=== PATIENT | male | born 1950 | race Caucasian/White ===

== ENCOUNTER 2022-07-08 07:51 | Inpatient (IN) ==
[2022-07-08] MEDS ORDERED: 0.9 % SODIUM CHLORIDE 1,000 ML IV ONE ×2 (08:14→09:10)
[2022-07-08] MEDS ORDERED: DIAZEPAM 10 MG/2 ML SYRINGE IV ONE (08:14)
[2022-07-08] MEDS ORDERED: METOCLOPRAMIDE 10 MG/2 ML VIAL IV ONE (08:14)
--- NOTE | 2022-07-08 08:20 | Emergency Department Note ---
Nausea/Vomiting/Diarrhea HPI General Chief complaint: Nausea/Vomiting/Diarrhea Stated complaint: N/v dizzy Time Seen by Provider: 07/08/22 07:58 Source: EMS Mode of arrival: EMS Limitations: no limitations History of Present Illness HPI Narrative: Narrative: The patient presents with several days of dizziness. He describes it as the world is spinning. This is worse with any movement. It is associated with vomi ting. Patient denies any headache or chest pain. He denies any diarrhea. He was just seen here recently and was feeling better but got home and started to feel worse again. He does admit to recent cocaine use. He denies dyspnea. He denies blood in the vomit. He denies any focal weakness or numbness but says he feels off balance. Related Data Home Medications Medication Instructions Recorded Confirmed albuterol 90 mcg/actuation aerosol 25 mcg inhalation QDAY 04/12/21 04/12/21 inhaler bupropion HCl 100 mg tablet 100 mg PO BID 04/12/21 04/12/21 metoprolol succinate 25 mg 25 mg PO QDAY 04/12/21 04/12/21 tablet,extended release 24 hr tamsulosin 0.4 mg capsule (Flomax) 0.4 mg PO QDAY 04/12/21 04/12/21 Previous Rx's Medication Instructions Recorded ondansetron 4 mg disintegrating 4 mg PO Q8H PRN nausea and 04/12/21 tablet vomiting #10 tabs Allergies Allergy/AdvReac Type Severity Reaction Status Date / Time No Known Drug Allergies Allergy Verified 07/08/22 07:52 Review of Systems ROS ROS Narrative: Narrative: All systems ED: reviewed and negative except as stated. [facility] Narrative Patient History Narrative: Narrative: Medical/Surgical/Family History All Active Problems (Updated 07/08/22 @ 12:36 by Gerry Stratton MD) Pneumonia (Acute) Flank pain (Acute) Cocaine intoxication (Acute) Acute dehydration (Acute) Other and unspecified peripheral vertigo (Acute) Social History Smoking Status: Current some day smoker Exam Narrative Narrative: Narrative: General Limitations: no limitations General appearance: Present alert Head Head: Present atraumatic and normal inspection Eye Eye: Present normal appearance, PERRL, EOMI and nystagmus (Marked horizontal nystagmus. No rotary or vertical nystagmus.) ENT ENT: Present TM's normal bilaterally; Absent mucous membranes moist Neck Neck: Present normal inspection, full ROM and trachea midline; Absent meningismus Chest Chest: Present normal inspection and symmetric chest wall rise Respiratory Respiratory: Present normal lung sounds bilaterally; Absent respiratory distress Cardiovascular Cardiovascular: Present regular rate, normal rhythm and other (Bilateral radial 2+) Adbominal Abdominal: Present soft; Absent distention, tenderness, guarding or rebound Extremities Extremities: Present normal inspection and full ROM Back Back: Present full ROM; Absent CVA tenderness (R) or CVA tenderness (L) Neurological Neurological: Present alert, oriented X3, CN II-XII intact and other (Cerebellar exam is normal based on both finger-nose and heel mckeon); Absent motor sensory deficit Psychiatric Psychiatric: Present normal affect and normal mood Skin Skin: Present warm (WNL) and dry Course Reevaluation(s) Reevaluation #1: The patient's work-up is reviewed and is essentially negative. He does appear little dehydrated. A second liter of fluid was given. Patient is reevaluated and does state that he feels better, although symptoms have not completely resolved. Plan at this point is to ambulate patient. If you feel steady on his feet, discharge may be discussed with prescription medication. If he does not, then I will consult with hospitalist for an observation overnight. Time: 09:23 Reevaluation #2: The patient failed his ambulation test. Nursing staff said he was extremely unsteady on his feet. At this point, I feel discharge would be unsafe. We are waiting to see if there are any beds available at this facility and if there are, I will consult with the hospitalist. If there are not, we will need to arrange for a transfer. Time: 09:43 Consultations Consultation #1: I spoke to the hospitalist, Dr. Ritchie. He asked me to get a noncontrast MRI of the brain and if that was normal, he would gladly admit the patient locally. He said that that was abnormal, the patient would need to be transferred to someplace that has a neurologist. Time: 10:51 Vital Signs Vital signs: Vital Signs Temperature 97.4 F 07/08/22 07:51 Pulse Rate 69 07/08/22 07:51 Respiratory Rate 20 07/08/22 07:51 Blood Pressure 217/117 07/08/22 07:51 Pulse Oximetry (%) 93 07/08/22 07:51 Oxygen Delivery Method 07/08/22 07:51 Temperature 97.4 F 07/08/22 07:51 Pulse Rate 81 07/08/22 12:22 Respiratory Rate 19 07/08/22 12:22 Blood Pressure 147/103 07/08/22 12:22 Pulse Oximetry (%) 92 07/08/22 12:22 Oxygen Delivery Method 07/08/22 07:51 MDM MDM Narrative Medical decision making narrative: Narrative: The patient presents with what sounds like peripheral vertigo. He tsang s a normal cerebellar exam so I have little concern for posterior fossa event. He does appear mildly dehydrated. Plan to check CBC, CMP, troponin, head CT, and EKG. We will keep him on a threat monitoring analyst. We will give a liter of fluid. We will give Reglan for the nausea and a dose of diazepam for the vertigo. If patient's work-up is negative and he is feeling better, then discharge may be discussed. Lab Data Lab results reviewed: Yes I reviewed the patient's lab results. Result diagrams: 07/08/22 08:19 07/08/22 08:19 Labs: Lab Results 07/08/22 07/08/22 07/08/22 Range/Units 08:06 08:19 08:19 WBC 11.7 H (4.5-11.0) K/mcL RBC 6.47 H (4.63-6.08) M/mcL Hgb 19.1 H (13.7-17.5) g/dL Hct 56.7 H (40.1-51.0) % MCV 87.6 (80.0-100.0) fL MCH 29.5 (26.0-34.0) pg MCHC 33.7 (31.0-36.0) g/dL RDW 14.3 (11.5-14.5) % Plt Count 275 (140-440) K/mcL MPV 11.3 H (7.4-10.4) fL Immature Gran % (Auto) 0.4 (0.0-0.5) % Neut % (Auto) 78.2 H (38.0-78.0) % Lymph % (Auto) 13.5 L (15.5-49.0) % [place] % (Auto) 7.2 (1.0-12.0) % Eos % (Auto) 0.4 (0.0-7.0) % Baso % (Auto) 0.3 (0.0-2.0) % Lymph # (Auto) 1.58 (1.50-4.80) K/mcL [place] # (Auto) 0.84 (0.10-0.90) K/mcL Eos # (Auto) 0.05 (0.00-0.70) K/mcL Baso # (Auto) 0.04 (0.00-0.30) K/mcL Immature Gran # 0.05 (0.00-0.05) K/mcl Absolute Neutrophils 9.18 H (1.80-8.00) K/mcL Sodium 141 (133-145) mmol/L Potassium 4.2 (3.3-5.1) mmol/L Chloride 105 (96-108) mmol/L Carbon Dioxide 19 L (22-30) mmol/L Anion Gap 17.0 H (8.0-16.0) BUN 22 (8-23) mg/dL Creatinine 1.2 (0.7-1.2) mg/dL GFR Calculation 60 Glucose 121 H (70-105) mg/dL Calcium 9.3 (8.6-10.4) mg/dL Total Bilirubin 0.8 (0.1-1.0) mg/dL AST 18 (<40) U/L ALT 20 (<40) U/L Alkaline Phosphatase 86 (39-117) U/L Total Protein 7.8 (5.9-8.4) gm/dL Albumin 4.2 (3.2-5.2) gm/dL Globulin 3.6 (2.2-3.7) gm/dL Albumin/Globulin Ratio 1.2 (1.0-2.3) POC Troponin I 0.01 L (0.02-0.08) Radiology Data Radiology results reviewed: Yes I reviewed the patient's radiology results. EKG Data EKG #1: EKG attestation: Yes I reviewed and interpreted this EKG. and Yes There are no EKG findings of acute coronary syndrome EKG results narrative: Sinus, rate 81, normal axis, QTC 504, TN is 203, narrow complex QRS, no acute ST or T changes concerning for acute infarction or ischemia Discharge Plan Patient/Caregiver Discharge Instructions Pt seen by BICYCLE TECHNICIAN/PA only: No Clinical Impression: Other and unspecified peripheral vertigo Patient Disposition: Xfer As Inpt ([facility]) Follow up with: No,PCP [Primary Care Provider] - Prescriptions: No Action bupropion HCl [Wellbutrin] 100 mg Tablet 100 mg PO BID Rx Instructions: pt unsure of MG tamsulosin [Flomax] 0.4 mg Capsule 0.4 mg PO QDAY metoprolol succinate 25 mg Tablet Extended Release 24 Hr 25 mg PO QDAY Rx Instructions: pt unsure of dosage albuterol 90 mcg/actuation Aerosol 25 mcg INHALATION QDAY ondansetron 4 mg tablet,disintegrating 4 mg PO Q8H PRN (Reason: nausea and vomiting) Qty: 10 0RF
[2022-07-08 08:54] LABS: Basophils # (Auto) 0.04 K/mcL (0.00-0.30); Basophils % (Auto) 0.3 % (0.0-2.0); Eosinophils # (Auto) 0.05 K/mcL (0.00-0.70); Eosinophils % (Auto) 0.4 % (0.0-7.0); Hematocrit 56.7 % (40.1-51.0); Hemoglobin 19.1 g/dL (13.7-17.5); Lymphocytes # (Auto) 1.58 K/mcL (1.50-4.80); Lymphocytes % (Auto) 13.5 % (15.5-49.0); Mean Cell Volume 87.6 fL (80.0-100.0); Mean Corpuscular HGB Conc 33.7 g/dL (31.0-36.0); Mean Platelet Volume 11.3 fL (7.4-10.4); Monocytes # (Auto) 0.84 K/mcL (0.10-0.90); Monocytes % (Auto) 7.2 % (1.0-12.0); Neutrophils % (Auto) 78.2 % (38.0-78.0); Platelet Count 275 K/mcL (140-440); RBC 6.47 M/mcL (4.63-6.08); Red Cell Distribution Width 14.3 % (11.5-14.5); WBC 11.7 K/mcL (4.5-11.0)
[2022-07-08 09:01] LABS: ALT/SGPT 20 U/L (<40); AST/SGOT 18 U/L (<40); Albumin 4.2 gm/dL (3.2-5.2); Albumin/Globulin Ratio 1.2 (1.0-2.3); Alkaline Phosphatase 86 U/L (39-117); Bilirubin,Total 0.8 mg/dL (0.1-1.0); Blood Urea Nitrogen 22 mg/dL (8-23); Calcium 9.3 mg/dL (8.6-10.4); Carbon Dioxide 19 mmol/L (22-30); Chloride 105 mmol/L (96-108); Globulin 3.6 gm/dL (2.2-3.7); Glomerular Filtration Rate 60; Glucose 121 mg/dL (70-105)
--- NOTE | 2022-07-08 09:19 | Cat Scan Report ---
CLINICAL INFORMATION: Vertigo COMPARISON: None. TECHNIQUE: 2.5 mm helical slices were obtained in the skull base to vertex. Following reconstruction, axial reformatted images were reviewed at bone and parenchymal windows. The exam was performed using radiation dose optimization techniques including, but not limited to, automated exposure control, adjustment of the mA and/or kV according to patient size and use of iterative reconstruction technique. FINDINGS: The ventricles, sulci, fissures, and cisterns are symmetrically enlarged compatible with mild age-related atrophy. No extra-axial fluid collections are identified. Mild patchy chronic ischemic changes, in the deep cerebral white matter, are expected for age. Small remote lacunar infarcts present in the bifrontal deep white matter, right thalamus and both lentiform nuclei. There is no hemorrhage, mass effect, or edema. Bone windows show no osseous abnormality. IMPRESSION: Mild atrophy and chronic ischemic changes in the deep cerebral white matter-expected for age. Remote lacunar infarcts in the deep bifrontal white matter, right thalamus and basal ganglia. No hemorrhage or other acute finding Interpreted and Authenticated by: Ross Gao 07/08/22
--- NOTE | 2022-07-08 10:09 | EKG ---
TS Minor Care Test Date: 2022-07-08 Pat Name: Souleymane Naik Department: ED Room: Gender: Male Call Or Contact Centre Team Leader: : 1950 Requested By: Gerry Stratton Order Number: [id number] Reading MD: Neri Crabtree Measurements Intervals [place] Rate: 81 P: 48 [place]: 203 QRS: 9 QRSD: 108 T: 74 QT: 434 QTc: 504 Interpretive Statements Sinus rhythm Prolonged QT interval Electronically Signed On 07-08-2022 10:09:16 PDT by Neri Crabtree /store/M0/[id number]/[email or web address]/[id number].pdf
--- NOTE | 2022-07-08 12:20 | Magnetic Resonance Report ---
CLINICAL INFORMATION: Dizziness and vomiting COMPARISON: Head CT 07/08/2022 TECHNIQUE: Sagittal T1 FLAIR, axial T2 FLAIR, diffusion ADC axial T2, coronal T1 post Mag[place]vist axial T1 post made images were acquired through the brain FINDINGS: The ventricles, sulci, fissures and cisterns are symmetrically enlarged compatible with mild age-related atrophy-no extra-axial fluid collections or masses appreciated. Scattered chronic ischemic changes in the deep cerebral white matter are typical for age. 10 mm remote lacunar infarct in the right frontal white matter with a laminar normal lacunar infarct in the left frontal parietal junction and peritrigonal region. No abnormal enhancement. IMPRESSION: Mild atrophy with scattered chronic ischemic foci in cerebral white matter. Remote lacunar infarcts in the mid deep right frontal white matter and the posterior left deep frontal white matter. No evidence of restricted diffusion to suggest acute infarct, hemorrhage or other acute finding. Interpreted and Authenticated by: Ross Gao 07/08/22
[2022-07-08] MEDS ORDERED: ACETAMINOPHEN 325 MG TABLET PO PRN (13:44)
--- NOTE | 2022-07-08 14:19 | Internal Med History&Physical ---
HPI History of Present Illness Patient information: Note initiated : 07/08/22 at 2:11 pm Service Date, if different from initiated Date: [] Patient: Souleymane Naik 71 y/o M admitted on 07/08/22 for N/v dizzy. Chief Complaint: [] History of present illness: Mr. Naik is a 71 year old with a chief complaint of "dizziness". He says it started at home several days ago. It was initially associated changes in hearing, the patient says both ears were affected. The patient is also had nausea and vomiting. He denies recent fevers chills, no headaches, no chest pain, no abdominal discomfort. In the ED, the patient had a mild leukocytosis, elevated hemoglobin and hematocrit. CT head without contrast not show any acute changes. MRI brain did not show any acute changes. Hospital medicine was consulted for admission. Review of systems Constitutional: no fever, fatigue, or weight loss Eyes: no vision changes or pain Cardiovascular: no chest pain, no palpitations Respiratory: no cough or dyspnea Gastrointestinal: Positive for nausea and vomiting, abdominal pain, no nausea, vomiting, or diarrhea Genitourinary: no dysuria or difficulty voiding Musculoskeletal: no arthralgia or myalgia Integumentary: no skin lesion or wound Neurological: Positive for vertigo Psychiatric: no anxiety or depression Physical exam Head: Atraumatic, normal inspection. Eyes: normal appearance, no scleral icterus. Neck: full ROM Respiratory: no respiratory distress. Cardiovascular: normal rate and rhythm, S1, S2. GI/Abdominal: soft, nontender, no guarding. Extremities: full range of motion, nontender. Neurological: Positive for horizontal nystagmus, intact motor, intact sensation. Psychiatric: normal mood. Skin: warm, normal color PFSH PFSH All Active Problems (Updated 07/08/22 @ 12:36 by Gerry Stratton MD) Pneumonia (Acute) Flank pain (Acute) Cocaine intoxication (Acute) Acute dehydration (Acute) Other and unspecified peripheral vertigo (Acute) Social History smoking status: Current some day smoker MEDS/ALLERGIES Home Medications and Allergies Home Medications Medication Instructions Recorded Confirmed Type albuterol 90 mcg/actuation aerosol 25 mcg inhalation QDAY 04/12/21 04/12/21 History inhaler bupropion HCl 100 mg tablet 100 mg PO BID 04/12/21 04/12/21 History metoprolol succinate 25 mg 25 mg PO QDAY 04/12/21 04/12/21 History tablet,extended release 24 hr ondansetron 4 mg disintegrating 4 mg PO Q8H PRN nausea and 04/12/21 Rx tablet vomiting #10 tabs tamsulosin 0.4 mg capsule (Flomax) 0.4 mg PO QDAY 04/12/21 04/12/21 History Allergies Allergy/AdvReac Type Severity Reaction Status Date / Time No Known Drug Allergies Allergy Verified 07/08/22 07:52 EXAM Constitutional Vitals: Temp Pulse Resp BP Pulse Ox O2 Del Method 97.4 F 81 10 L 146/96 90 07/08/22 13:38 07/08/22 13:38 07/08/22 13:38 07/08/22 13:38 07/08/22 13:38 07/08/22 07:51 DATA Data Completed and Pending Labs: Labs from last 24 hours 07/08/22 07/08/22 07/08/22 08:19 08:19 08:06 WBC 11.7 H RBC 6.47 H Hgb 19.1 H Hct 56.7 H MCV 87.6 MCH 29.5 MCHC 33.7 RDW 14.3 Plt Count 275 MPV 11.3 H Immature Gran % (Auto) 0.4 Neut % (Auto) 78.2 H Lymph % (Auto) 13.5 L [place] % (Auto) 7.2 Eos % (Auto) 0.4 Baso % (Auto) 0.3 Lymph # (Auto) 1.58 [place] # (Auto) 0.84 Eos # (Auto) 0.05 Baso # (Auto) 0.04 Immature Gran # 0.05 Absolute Neutrophils 9.18 H Sodium 141 Potassium 4.2 Chloride 105 Carbon Dioxide 19 L Anion Gap 17.0 H BUN 22 Creatinine 1.2 GFR Calculation 60 Glucose 121 H Calcium 9.3 Total Bilirubin 0.8 AST 18 ALT 20 Alkaline Phosphatase 86 Total Protein 7.8 Albumin 4.2 Globulin 3.6 Albumin/Globulin Ratio 1.2 POC Troponin I 0.01 L A/P Narrative A/P Narrative: Assessment: 71-year-old male with a history of untreated hypertension, cocaine use disorder admitted for peripheral vertigo. Patient was also found to have polycythemia, he says he has been told he has high hemoglobin in the past. MRI brain did not show any acute infarct or other changes that could cause central vertigo. 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 -Meclizine as needed for vertigo. -Follow WBC and hemoglobin. -Urine drug screen. -Start Norvasc 5 mg daily. -Supportive cares. -PT and OT. -Regular diet. Time Spent With Patient Time: Total time spent is greater than 50% in coordination of care (as documented) at patient's floor/unit and/or counseling patient:
[2022-07-08] MEDS: ONDANSETRON 4 MG/2 ML VIAL IV PRN (14:46)
[2022-07-08] MEDS: 0.9 % SODIUM CHLORIDE 1,000 ML IV SCH (14:46)
[2022-07-08] MEDS: 0.9 % SODIUM CHLORIDE 10 ML SYRINGE IV SCH ×2 (14:46→21:10)
[2022-07-08] MEDS: amLODIPine 5 MG TABLET PO SCH (14:51)
[2022-07-08] MEDS: DOCUSATE SODIUM 100 MG CAPSULE PO SCH (21:09)
[2022-07-08] MEDS: SENNOSIDES 1 TABLET PO SCH (21:10)
[2022-07-09 00:44] LABS: Amphetamine Screen,Urine None detected; Barbiturate Screen,Urine None detected; Benzodiazepines Screen,Urine None detected; Cannabinoid Screen,Urine None detected; Cocaine Screen,Urine Suspect Positive; Opiate Screen,Urine None detected; Oxycodone, Urine Screen None detected; Phencyclidine Screen,Urine None detected
[2022-07-09] MEDS: 0.9 % SODIUM CHLORIDE 1,000 ML IV SCH ×2 (03:31→16:59)
[2022-07-09] MEDS: 0.9 % SODIUM CHLORIDE 10 ML SYRINGE IV SCH ×4 (05:24→20:26)
[2022-07-09 07:24] LABS: Blood Urea Nitrogen 18 mg/dL (8-23); Calcium 8.9 mg/dL (8.6-10.4); Carbon Dioxide 24 mmol/L (22-30); Chloride 108 mmol/L (96-108); Glomerular Filtration Rate 75; Glucose 81 mg/dL (70-105)
[2022-07-09] MEDS: amLODIPine 5 MG TABLET PO SCH (08:25)
[2022-07-09] MEDS: DOCUSATE SODIUM 100 MG CAPSULE PO SCH ×2 (08:25→20:26)
[2022-07-09 09:12] LABS: Basophils # (Auto) 0.04 K/mcL (0.00-0.30); Basophils % (Auto) 0.5 % (0.0-2.0); Eosinophils # (Auto) 0.15 K/mcL (0.00-0.70); Eosinophils % (Auto) 1.8 % (0.0-7.0); Hematocrit 51.1 % (40.1-51.0); Hemoglobin 17.4 g/dL (13.7-17.5); Lymphocytes # (Auto) 1.43 K/mcL (1.50-4.80); Lymphocytes % (Auto) 17.3 % (15.5-49.0); Mean Cell Volume 88.4 fL (80.0-100.0); Mean Corpuscular HGB Conc 34.1 g/dL (31.0-36.0); Mean Platelet Volume 11.6 fL (7.4-10.4); Monocytes # (Auto) 0.69 K/mcL (0.10-0.90); Monocytes % (Auto) 8.3 % (1.0-12.0); Neutrophils % (Auto) 71.6 % (38.0-78.0); Platelet Count 219 K/mcL (140-440); RBC 5.78 M/mcL (4.63-6.08); WBC 8.3 K/mcL (4.5-11.0)
[2022-07-09] MEDS: ONDANSETRON 4 MG/2 ML VIAL IV PRN (14:37)
--- NOTE | 2022-07-09 14:46 | Internal Med Progress Note ---
SUBJECTIVE Subjective Patient information: Note initiated : 07/09/22 at 2:43 pm Service Date, if different from initiated Date: [] Patient: Souleymane Naik 71 y/o M admitted on 07/08/22 for N/v dizzy. Chief Complaint: [] Interval history: Mr. Naik is a 71 year old with a chief complaint of "dizziness". He says it started at home several days ago. It was initially associated changes in hearing, the patient says both ears were affected. The patient is also had nausea and vomiting. He denies recent fevers chills, no headaches, no chest pa in, no abdominal discomfort. In the ED, the patient had a mild leukocytosis, elevated hemoglobin and hematocrit. CT head without contrast not show any acute changes. MRI brain did not show any acute changes. Hospital medicine was consulted for admission. 07/09 Vertigo somewhat improved today but still causing significant impairment, continues to have left beating horizontal nystagmus and tendinitis in left ear. Hemoglobin improved after receiving IV fluids, leukocytosis resolved. None anion gap metabolic acidosis resolved. Urine drug screen was positive for cocaine. PT following for vestibular rehab. Physical exam Head: Atraumatic, normal inspection. Eyes: normal appearance, no scleral icterus. Neck: full ROM Respiratory: no respiratory distress. Cardiovascular: normal rate and rhythm, S1, S2. GI/Abdominal: soft, nontender, no guarding. Extremities: full range of motion, nontender. Neurological: Positive for horizontal nystagmus, intact motor, intact sensation. Psychiatric: normal mood. Skin: warm, normal color Constitutional Vitals: Vital Signs Temp Pulse Resp BP Pulse Ox O2 Del Method 98.1 F 72 16 160/86 94 07/09/22 12:00 07/09/22 12:00 07/09/22 12:00 07/09/22 12:00 07/09/22 12:00 07/09/22 12:00 Period Temp Pulse Resp BP Sys/Concepcion Pulse Ox O2 Del Method O2 Flow Rate Last 24 Hr 97.3 F-98.1 F 59-85 14-16 115-160/64-92 91-98 Room Air-Room Air Intake and Output 07/09/22 07/09/22 07/09/22 05:59 13:59 21:59 Intake Total 1136 240 Output Total 400 Balance 736 240 Intake & Output: Intake & Output 07/09/22 07/09/22 07/09/22 05:59 13:59 21:59 Intake Total 1136 240 Output Total 400 Balance 736 240 Intake: IV 956 Sodium Chloride 0.9% 1,000 ml @ 956 75 mls/hr IV .[id number] [facility] Rx#: [id number] Oral 180 240 Output: Void Amount 400 Other: Meal Lunch Percent of Meal Consumed 100% Feeding Ability Assist with Tray Set Up Urine Appearance Clear Clear Urine Color Dark Yellow Yellow Urine Odor Normal OBJ DATA Labs CBC & Chem 7: 07/09/22 05:28 07/09/22 05:28 Labs: Abnormal Lab Results 07/09/22 07/08/22 07/08/22 05:28 21:43 08:19 WBC RBC Hgb Hct 51.1 H MPV 11.6 H Neut % (Auto) Lymph % (Auto) Lymph # (Auto) 1.43 L Absolute Neutrophils Carbon Dioxide 19 L Anion Gap 17.0 H Glucose 121 H Urine Cocaine Screen Suspect positive A POC Troponin I 07/08/22 07/08/22 08:19 08:06 WBC 11.7 H RBC 6.47 H Hgb 19.1 H Hct 56.7 H MPV 11.3 H Neut % (Auto) 78.2 H Lymph % (Auto) 13.5 L Lymph # (Auto) Absolute Neutrophils 9.18 H Carbon Dioxide Anion Gap Glucose Urine Cocaine Screen POC Troponin I 0.01 L Meds: Medications Acetaminophen (Acetaminophen 325 Mg Tablet) 650 mg PO Q6HP PRN; Protocol PRN Reason: Per Pain Protocol/Fever > 101 Amlodipine Besylate (Amlodipine 5 Mg Tablet) 5 mg PO DAILY [facility] Last Admin: 07/09/22 08:25 Dose: 5 mg Docusate Sodium (Docusate Sodium 100 Mg Capsule) 100 mg PO BID [facility] Last Admin: 07/09/22 08:25 Dose: 100 mg Sodium Chloride (Sodium Chloride 0.9%) 1,000 mls @ 75 mls/hr IV .[id number] [facility] Last Admin: 07/09/22 03:31 Dose: 75 mls/hr Meclizine HCl (Meclizine 25 Mg Tablet) 25 mg PO TIDP PRN PRN Reason: Vertigo Ondansetron HCl (Ondansetron 4 Mg/2 Ml Vial) 4 mg IV Q6HP PRN PRN Reason: Nausea And Vomiting Last Admin: 07/09/22 14:37 Dose: 4 mg Senna (Sennosides 1 Tablet) 2 tab PO HS [facility] Last Admin: 07/08/22 21:10 Dose: 2 tab Sodium Chloride (0.9 % Sodium Chloride 10 Ml Syringe) 10 ml IV Q8 [facility]AREL[facility] Last Admin: 07/09/22 14:23 Dose: Not Given A/P Narrative A/P Narrative: Assessment: 71-year-old male with a history of untreated hypertension, cocaine use disorder, and probably polycythemia admitted for peripheral vertigo. MRI brain did not show any acute infarct or other changes that could cause central vertigo. #Peripheral vertigo of uncertain etiology #Polycythemia #Hypertension #Cocaine use disorder #History of renal stones Plan -Meclizine as needed for vertigo. -Continue Norvasc 5 mg daily. -Follow hemoglobin/hematocrit. -Obtain serum Erythropoietin. -PT for vestibular rehab. -Regular diet. -CODE STATUS: Full -Disposition: Home when nystagmus has improved, probably outpatient vestibular rehab. Continue outpatient work-up for polycythemia. Time Spent With Patient Time: Total time spent is greater than 50% in coordination of care (as documented) at patient's floor/unit and/or counseling patient: QUALITY Stroke Symptom Onset Unknown: No VTE Deep Vein Thrombosis/Pulmonary Embolism Present on Admission: No
[2022-07-09] MEDS: SENNOSIDES 1 TABLET PO SCH (20:26)
[2022-07-10] MEDS: 0.9 % SODIUM CHLORIDE 10 ML SYRINGE IV SCH ×3 (05:26→20:19)
[2022-07-10] MEDS: 0.9 % SODIUM CHLORIDE 1,000 ML IV SCH (05:28)
[2022-07-10 07:05] LABS: Basophils # (Auto) 0.04 K/mcL (0.00-0.30); Basophils % (Auto) 0.5 % (0.0-2.0); Eosinophils # (Auto) 0.25 K/mcL (0.00-0.70); Eosinophils % (Auto) 3.1 % (0.0-7.0); Hematocrit 53.3 % (40.1-51.0); Hemoglobin 17.2 g/dL (13.7-17.5); Lymphocytes # (Auto) 1.73 K/mcL (1.50-4.80); Lymphocytes % (Auto) 21.7 % (15.5-49.0); Mean Cell Volume 92.2 fL (80.0-100.0); Mean Corpuscular HGB Conc 32.3 g/dL (31.0-36.0); Mean Platelet Volume 11.2 fL (7.4-10.4); Monocytes # (Auto) 0.73 K/mcL (0.10-0.90); Monocytes % (Auto) 9.1 % (1.0-12.0); Neutrophils % (Auto) 65.2 % (38.0-78.0); Platelet Count 214 K/mcL (140-440); RBC 5.78 M/mcL (4.63-6.08)
[2022-07-10] MEDS: DOCUSATE SODIUM 100 MG CAPSULE PO SCH ×2 (08:42→20:20)
[2022-07-10] MEDS: amLODIPine 5 MG TABLET PO SCH (08:42)
[2022-07-10] MEDS ORDERED: FLU VACC QS2022-23(6MOS UP)/PF 60 MCG/0.5 ML SYRINGE IM ONE (10:00)
--- NOTE | 2022-07-10 11:39 | Internal Med Progress Note ---
SUBJECTIVE Subjective Patient information: Note initiated : 07/10/22 at 11:37 am Service Date, if different from initiated Date: [] Patient: Souleymane Naik 71 y/o M admitted on 07/08/22 for N/v dizzy. Chief Complaint: [] Interval history: Mr. Naik is a 71 year old with a chief complaint of "dizziness". He says it started at home several days ago. It was initially associated changes in hearing, the patient says both ears were affected. The patient is also had nausea and vomiting. He denies recent fevers chills, no headaches, no chest p ain, no abdominal discomfort. In the ED, the patient had a mild leukocytosis, elevated hemoglobin and hematocrit. CT head without contrast not show any acute changes. MRI brain did not show any acute changes. Hospital medicine was consulted for admission. 07/09 Vertigo somewhat improved today but still causing significant impairment, continues to have left beating horizontal nystagmus and tendinitis in left ear. Hemoglobin improved after receiving IV fluids, leukocytosis resolved. None ani on gap metabolic acidosis resolved. Urine drug screen was positive for cocaine. PT following for vestibular rehab. 07/10 The patient said he had a fairly restful night however symptoms occurred when he sat up to the side of the bed. Physical therapy has not seen the patient yet, awaiting physical therapy for vestibular rehab which will hopefully improve the patient's symptoms if they are secondary to benign paroxysmal positional vertigo. If symptoms are secondary to vestibular neuritis or Mnire's disease or other cause of peripheral vertigo they will take longer to resolve. Discontinued IV fluid. Physical exam Head: Atraumatic, normal inspection. Eyes: normal appearance, no scleral icterus. Neck: full ROM Respiratory: no respiratory distress. Cardiovascular: normal rate and rhythm, S1, S2. GI/Abdominal: soft, nontender, no guarding. Extremities: full range of motion, nontender. Neurological: Positive for horizontal nystagmus, intact motor, intact sensation. Psychiatric: normal mood. Skin: warm, normal color Constitutional Vitals: Vital Signs Temp Pulse Resp BP Pulse Ox O2 Del Method 96.8 F L 57 L 16 146/78 97 07/10/22 07:29 07/10/22 07:29 07/10/22 07:29 07/10/22 07:29 07/10/22 07:29 07/10/22 07:29 Period Temp Pulse Resp BP Sys/Concepcion Pulse Ox O2 Del Method O2 Flow Rate Last 24 Hr 96.8 F-98.2 F 56-72 14-16 131-160/73-86 93-97 Room Air-Room Air Intake and Output 07/09/22 07/10/22 07/10/22 21:59 05:59 13:59 Intake Total 1590 1036 Output Total 1050 1475 Balance 540 -439 Weight 95.164 kg Intake & Output: Intake & Output 07/09/22 07/10/22 07/10/22 21:59 05:59 13:59 Intake Total 1590 1036 Output Total 1050 1475 Balance 540 -439 Weight 95.164 kg Intake: IV 1000 936 Sodium Chloride 0.9% 1,000 ml @ 1000 936 75 mls/hr IV .[id number] [facility] Rx#: [id number] Oral 590 100 Output: Void Amount 1050 1475 Other: Meal Dinner Percent of Meal Consumed 90% Feeding Ability Independent Urine Appearance Clear Clear Clear Urine Color Yellow Yellow Yellow Urine Odor Normal Stool Size Moderate Stool Color Brown Stool Consistency Normal for Patient OBJ DATA Labs CBC & Chem 7: 07/10/22 06:18 07/09/22 05:28 Labs: Abnormal Lab Results 07/10/22 07/09/22 07/08/22 06:18 05:28 21:43 WBC RBC Hgb Hct 53.3 H 51.1 H MPV 11.2 H 11.6 H Neut % (Auto) Lymph % (Auto) Lymph # (Auto) 1.43 L Absolute Neutrophils Carbon Dioxide Anion Gap Glucose Urine Cocaine Screen Suspect positive A POC Troponin I 07/08/22 07/08/22 07/08/22 08:19 08:19 08:06 WBC 11.7 H RBC 6.47 H Hgb 19.1 H Hct 56.7 H MPV 11.3 H Neut % (Auto) 78.2 H Lymph % (Auto) 13.5 L Lymph # (Auto) Absolute Neutrophils 9.18 H Carbon Dioxide 19 L Anion Gap 17.0 H Glucose 121 H Urine Cocaine Screen POC Troponin I 0.01 L Meds: Medications Acetaminophen (Acetaminophen 325 Mg Tablet) 650 mg PO Q6HP PRN; Protocol PRN Reason: Per Pain Protocol/Fever > 101 Amlodipine Besylate (Amlodipine 5 Mg Tablet) 5 mg PO DAILY [facility] Last Admin: 07/10/22 08:42 Dose: 5 mg Docusate Sodium (Docusate Sodium 100 Mg Capsule) 100 mg PO BID [facility] Last Admin: 07/10/22 08:42 Dose: 100 mg Sodium Chloride (Sodium Chloride 0.9%) 1,000 mls @ 75 mls/hr IV .[id number] [facility] Last Admin: 07/10/22 05:28 Dose: 75 mls/hr Meclizine HCl (Meclizine 25 Mg Tablet) 25 mg PO TIDP PRN PRN Reason: Vertigo Ondansetron HCl (Ondansetron 4 Mg/2 Ml Vial) 4 mg IV Q6HP PRN PRN Reason: Nausea And Vomiting Last Admin: 07/09/22 14:37 Dose: 4 mg Senna (Sennosides 1 Tablet) 2 tab PO HS [facility] Last Admin: 07/09/22 20:26 Dose: 2 tab Sodium Chloride (0.9 % Sodium Chloride 10 Ml Syringe) 10 ml IV Q8 [facility] Last Admin: 07/10/22 05:26 Dose: Not Given A/P Narrative A/P Narrative: Assessment: 71-year-old male with a history of untreated hypertension, cocaine use disorder, and probably polycythemia admitted for peripheral vertigo. MRI brain did not show any acute infarct or other changes that could cause central vertigo. #Peripheral vertigo of uncertain etiology, possibly BPPV versus vestibular neuritis versus Mnire's disease versus other cause of peripheral vertigo #Tinnitus #Polycythemia #Hypertension #Cocaine use disorder #History of renal stones Plan -Meclizine as needed for vertigo. -Continue Norvasc 5 mg daily. -Follow serum Erythropoietin. -Discontinue IV fluid. -PT for vestibular rehab. -Regular diet. -CODE STATUS: Full -Disposition: TBD, will likely need vestibular rehab after discharge. Outpatient work-up for polycythemia. Time Spent With Patient Time: Total time spent is greater than 50% in coordination of care (as documented) at patient's floor/unit and/or counseling patient: QUALITY Stroke Symptom Onset Unknown: No VTE Deep Vein Thrombosis/Pulmonary Embolism Present on Admission: No
--- NOTE | 2022-07-10 14:33 | Internal Med Progress Note ---
SUBJECTIVE Subjective Patient information: Note initiated : 07/10/22 at 2:21 pm Service Date, if different from initiated Date: [] Patient: Souleymane Naik 71 y/o M admitted on 07/08/22 for N/v dizzy. Chief Complaint: [] Interval history: Mr. Naik is a 71 year old with a chief complaint of "dizziness". He says it started at home several days ago. It was initially associated changes in hearing, the patient says both ears were affected. The patient is also had nausea and vomiting. He denies recent fevers chills, no headaches, no chest pa in, no abdominal discomfort. In the ED, the patient had a mild leukocytosis, elevated hemoglobin and hematocrit. CT head without contrast not show any acute changes. MRI brain did not show any acute changes. Hospital medicine was consulted for admission. 07/09 Vertigo somewhat improved today but still causing significant impairment, continues to have left beating horizontal nystagmus and tendinitis in left ear. Hemoglobin improved after receiving IV fluids, leukocytosis resolved. None anion gap metabolic acidosis resolved. Urine drug screen was positive for cocaine. PT following for vestibular rehab. 07/10 The patient said he had a fairly restful night however symptoms occurred when he sat up to the side of the bed. Physical therapy has not seen the patient yet, awaiting physical therapy for vestibular rehab which will hopefully improve the patient's symptoms if they are secondary to benign paroxysmal positional vertigo. If symptoms are secondary to vestibular neuritis or Mnire's disease or other cause of peripheral vertigo they will take longer to resolve. Discontinued IV fluid. 07/11 Constitutional Vitals: Vital Signs Temp Pulse Resp BP Pulse Ox O2 Del Method 97.4 F 64 18 157/81 97 07/10/22 12:00 07/10/22 12:00 07/10/22 12:00 07/10/22 12:00 07/10/22 12:00 07/10/22 12:00 Period Temp Pulse Resp BP Sys/Concepcion Pulse Ox O2 Del Method O2 Flow Rate Last 24 Hr 96.8 F-98.2 F 56-69 14-18 131-157/73-85 93-97 Room Air-Room Air Intake and Output 07/10/22 07/10/22 07/10/22 05:59 13:59 21:59 Intake Total 1036 400 Output Total 1475 1300 Balance -439 -900 Weight 95.164 kg Intake & Output: Intake & Output 07/10/22 07/10/22 07/10/22 05:59 13:59 21:59 Intake Total 1036 400 Output Total 1475 1300 Balance -439 -900 Weight 95.164 kg Intake: IV 936 Sodium Chloride 0.9% 1,000 ml @ 936 75 mls/hr IV .[id number] [facility] Rx#: [id number] Oral 100 400 Output: Void Amount 1475 1300 Other: Meal Breakfast Percent of Meal Consumed 75% Feeding Ability Independent Urine Appearance Clear Clear Urine Color Yellow Yellow Urine Odor Normal Stool Size Moderate Stool Color Brown Stool Consistency Normal for Patient Exam: General: Alert, Awake, No acute Distress Eyes/N/T: EOMI, Head/Neck: neck supple, CV: RRR, No murmurs, Pulm: Clear b/l, no wheezing/rhonchi/rales Abd: soft, nontender, +BS x4 Ext: no clubbing/cyanosis/edema Neuro: Alert, Positive for horizontal nystagmus, intact motor, intact sensation,, moves all extremities, Skin: warm/dry OBJ DATA Labs CBC & Chem 7: 07/10/22 06:18 07/09/22 05:28 Labs: Abnormal Lab Results 07/10/22 07/09/22 07/08/22 06:18 05:28 21:43 WBC RBC Hgb Hct 53.3 H 51.1 H MPV 11.2 H 11.6 H Neut % (Auto) Lymph % (Auto) Lymph # (Auto) 1.43 L Absolute Neutrophils Carbon Dioxide Anion Gap Glucose Urine Cocaine Screen Suspect positive A POC Troponin I 07/08/22 07/08/22 07/08/22 08:19 08:19 08:06 WBC 11.7 H RBC 6.47 H Hgb 19.1 H Hct 56.7 H MPV 11.3 H Neut % (Auto) 78.2 H Lymph % (Auto) 13.5 L Lymph # (Auto) Absolute Neutrophils 9.18 H Carbon Dioxide 19 L Anion Gap 17.0 H Glucose 121 H Urine Cocaine Screen POC Troponin I 0.01 L Meds: Medications Acetaminophen (Acetaminophen 325 Mg Tablet) 650 mg PO Q6HP PRN; Protocol PRN Reason: Per Pain Protocol/Fever > 101 Amlodipine Besylate (Amlodipine 5 Mg Tablet) 5 mg PO DAILY [facility] Last Admin: 07/10/22 08:42 Dose: 5 mg Docusate Sodium (Docusate Sodium 100 Mg Capsule) 100 mg PO BID [facility] Last Admin: 07/10/22 08:42 Dose: 100 mg Meclizine HCl (Meclizine 25 Mg Tablet) 25 mg PO TIDP PRN PRN Reason: Vertigo Ondansetron HCl (Ondansetron 4 Mg/2 Ml Vial) 4 mg IV Q6HP PRN PRN Reason: Nausea And Vomiting Last Admin: 07/09/22 14:37 Dose: 4 mg Senna (Sennosides 1 Tablet) 2 tab PO HS [facility] Last Admin: 07/09/22 20:26 Dose: 2 tab Sodium Chloride (0.9 % Sodium Chloride 10 Ml Syringe) 10 ml IV Q8 [facility] Last Admin: 07/10/22 13:20 Dose: 10 ml A/P Narrative A/P Narrative: A: #Peripheral vertigo of uncertain etiology, possibly BPPV versus vestibular neuritis versus Mnire's disease versus other cause of peripheral vertigo -MRI brain neg for acute pathology but does show old infarcts #Tinnitus: #Polycythemia: #h/o CVA per imaging: #Hypertension: #Cocaine use disorder: #h/orenal stones: Plan: -Meclizine as needed for vertigo -Continue Norvasc 5 mg daily -Follow serum Erythropoietin -Discontinue IV fluid -PT for vestibular rehab -f/u Outpatient work-up for polycythemia. CODE STATUS: Lead Radiologic Technologist Spent With Patient Time: Total time spent is greater than 50% in coordination of care (as documented) at patient's floor/unit and/or counseling patient: QUALITY Stroke Symptom Onset Unknown: No VTE Deep Vein Thrombosis/Pulmonary Embolism Present on Admission: No
[2022-07-10] MEDS: ONDANSETRON 4 MG/2 ML VIAL IV PRN (15:02)
--- NOTE | 2022-07-10 15:45 | Discharge Summary ---
Discharge Provider Provider IMPORTANT FOLLOW-UP INFORMATION FOR PCP: -Meclizine as needed for vertigo -Continue Norvasc 5 mg daily -f/u Outpatient work-up for polycythemia. Patient information: Note initiated : 07/10/22 at 3:42 pm Service Date, if different from initiated Date: [] Patient: Souleymane Naik 71 y/o M admitted on 07/08/22 for N/v dizzy. Chief Complaint: [] Date of admission: 07/08/22 13:38 Discharge date: 07/13/22 Primary care physician: PCP No Consults: 07/08/22 Consult to Physician [CONS] Stat Comment: Consulting Provider: Jerry Ritchie Reason For Exam: Physician to Consult COURSE Hospital Course Hospital course: Interval history: Mr. Naik is a 71 year old with a chief complaint of "dizziness". He says it started at home several days ago. It was initially associated changes in hearing, the patient says both ears were affected. The patient is also had nausea and vomiting. He denies recent fevers chills, no headaches, no chest christian n, no abdominal discomfort. In the ED, the patient had a mild leukocytosis, elevated hemoglobin and hematocrit. CT head without contrast not show any acute changes. MRI brain did not show any acute changes. Hospital medicine was consulted for admission. 07/09 Vertigo somewhat improved today but still causing significant impairment, continues to have left beating horizontal nystagmus and tendinitis in left ear. Hemoglobin improved after receiving IV fluids, leukocytosis resolved. None anion gap metabolic acidosis resolved. Urine drug screen was positive for cocaine. PT following for vestibular rehab. 07/10 The patient said he had a fairly restful night however symptoms occurred when he sat up to the side of the bed. Physical therapy has not seen the patient yet, awaiting physical therapy for vestibular rehab which will hopefully improve the patient's symptoms if they are secondary to benign paroxysmal positional vertigo. If symptoms are secondary to vestibular neuritis or Mnire's disease or other cause of peripheral vertigo they will take longer to resolve. Discontinued IV fluid. 07/11 No overnight event or new complaints. Has vertigo when he gets up but has not been up today yet. Dates he has some double vision during that time. 07/12 Patient did not try to get out of bed yesterday because he felt drowsy from the medication. PT tried Amanda maneuver on the patient. Patient complains of double vision times. Patient states Zofran seems to work the best. 07/13 Patient states he is feeling little better. Patiently to follow-up with ENT. Stable for discharge to rehab. A: #Peripheral vertigo of uncertain etiology, possibly BPPV versus vestibular neuritis versus Mnire's disease versus other cause of peripheral vertigo -MRI brain neg for acute pathology but does show old infarcts #Tinnitus: #Polycythemia: #h/o CVA per imaging: #Hypertension: #Cocaine use disorder: #h/o renal stones: Plan: -Meclizine as needed for vertigo -Continue Norvasc 5 mg daily -f/u Outpatient work-up for polycythemia. Discharge diagnosis: Vertigo peripheral tinnitus polycythemia Secondary discharge diagnosis: History of stroke hypertension cocaine use disorder renal stones Time Spent with Patient Time attestation: Total time spent providing and/or coordinating discharge services: Time spent: Greater than 30 minutes EXAM Constitutional Vitals: Temp Pulse Resp BP Pulse Ox O2 Del Method 97.4 F 64 18 157/81 97 07/10/22 12:00 07/10/22 12:00 07/10/22 12:00 07/10/22 12:00 07/10/22 12:00 07/10/22 12:00 Discharge Data Data Completed and Pending Labs on day of discharge: Labs from last 24 hours 07/10/22 07/09/22 06:18 15:59 WBC 8.0 RBC 5.78 Hgb 17.2 Hct 53.3 H MCV 92.2 MCH 29.8 MCHC 32.3 RDW 14.0 Plt Count 214 MPV 11.2 H Immature Gran % (Auto) 0.4 Neut % (Auto) 65.2 Lymph % (Auto) 21.7 [place] % (Auto) 9.1 Eos % (Auto) 3.1 Baso % (Auto) 0.5 Lymph # (Auto) 1.73 [place] # (Auto) 0.73 Eos # (Auto) 0.25 Baso # (Auto) 0.04 Immature Gran # 0.03 Absolute Neutrophils 5.21 Erythropoietin Pending Discharge Plan Patient/Caregiver Discharge Instructions Activity: increase activity as tolerated Diet: Regular Diet Activity Restrictions/Additional Instructions: Referral to ENT for vertigo 3-10 days. Prescriptions: New amlodipine 5 mg Tablet 5 mg PO DAILY Qty: 30 0RF meclizine 25 mg Tablet 25 mg PO TIDP PRN (Reason: Vertigo) Qty: 30 0RF ondansetron 4 mg tablet,disintegrating 4 mg translingual Q4HP PRN (Reason: nausea and vomiting) Qty: 30 0RF Continued bupropion HCl 100 mg Tablet 100 mg PO BID Label Comments: PATIENT HAS STOPPED TAKING THIS Rx Instructions: pt unsure of MG tamsulosin [Flomax] 0.4 mg Capsule 0.4 mg PO QDAY Rx Instructions: should be taking but has run out albuterol 90 mcg/actuation Aerosol 25 mcg INHALATION QDAY ondansetron 4 mg tablet,disintegrating 4 mg PO Q8H PRN (Reason: nausea and vomiting) Qty: 10 0RF Rx Instructions: has run out Discontinued metoprolol succinate 25 mg Tablet Extended Release 24 Hr 25 mg PO QDAY Rx Instructions: pt unsure of dosage; has not been taking because he ran out Follow Up Plan Follow up with: No,PCP [Primary Care Provider] - Patient Disposition: Xfer SNF Prognosis: Fair Rehab Potential: Fair I certify that the patient requires SNF services: Yes Overall status at discharge: patient is progressing back to baseline Discharge Orders: Discharge Order (Routine); Ordered 07/13/22 Ordered By: Parker Washburn [facility] VTE Deep Vein Thrombosis/Pulmonary Embolism Present on Admission: No
[2022-07-10] MEDS: SENNOSIDES 1 TABLET PO SCH (20:19)
[2022-07-11] MEDS: MECLIZINE 25 MG TABLET PO PRN (05:18)
[2022-07-11] MEDS: 0.9 % SODIUM CHLORIDE 10 ML SYRINGE IV SCH ×3 (05:19→21:33)
[2022-07-11] MEDS: ONDANSETRON 4 MG/2 ML VIAL IV PRN ×2 (05:23→17:49)
[2022-07-11] MEDS: amLODIPine 5 MG TABLET PO SCH (08:15)
[2022-07-11] MEDS: DOCUSATE SODIUM 100 MG CAPSULE PO SCH ×2 (08:15→21:32)
[2022-07-11] MEDS ORDERED: cloNIDine HCL 0.1 MG TABLET PO PRN (08:24)
--- NOTE | 2022-07-11 08:26 | Internal Med Progress Note ---
SUBJECTIVE Subjective Patient information: Note initiated : 07/11/22 at 8:24 am Service Date, if different from initiated Date: [] Patient: Souleymane Naik 71 y/o M admitted on 07/08/22 for N/v dizzy. Chief Complaint: [] Interval history: Mr. Naik is a 71 year old with a chief complaint of "dizziness". He says it started at home several days ago. It was initially associated changes in hearing, the patient says both ears were affected. The patient is also had nausea and vomiting. He denies recent fevers chills, no headaches, no chest pa in, no abdominal discomfort. In the ED, the patient had a mild leukocytosis, elevated hemoglobin and hematocrit. CT head without contrast not show any acute changes. MRI brain did not show any acute changes. Hospital medicine was consulted for admission. 07/09 Vertigo somewhat improved today but still causing significant impairment, continues to have left beating horizontal nystagmus and tendinitis in left ear. Hemoglobin improved after receiving IV fluids, leukocytosis resolved. None anion gap metabolic acidosis resolved. Urine drug screen was positive for cocaine. PT following for vestibular rehab. 07/10 The patient said he had a fairly restful night however symptoms occurred when he sat up to the side of the bed. Physical therapy has not seen the patient yet, awaiting physical therapy for vestibular rehab which will hopefully improve the patient's symptoms if they are secondary to benign paroxysmal positional vertigo. If symptoms are secondary to vestibular neuritis or Mnire's disease or other cause of peripheral vertigo they will take longer to resolve. Discontinued IV fluid. 07/11 No overnight event or new complaints. Has vertigo when he gets up but has not been up today yet. Dates he has some double vision during that time. Review of Systems: denies headache/fever/chills/nausea/vomiting/chest or abdominal pain/cough/dyspnea/diarrhea. Otherwise see above. Constitutional Vitals: Vital Signs Temp Pulse Resp BP Pulse Ox O2 Del Method 97.3 F 85 16 169/96 91 07/11/22 08:00 07/11/22 08:00 07/11/22 08:00 07/11/22 08:00 07/11/22 08:00 07/11/22 08:00 Period Temp Pulse Resp BP Sys/Concepcion Pulse Ox O2 Del Method O2 Flow Rate Last 24 Hr 97.3 F-98.6 F 64-85 12-18 143-172/80-96 90-97 Room Air-Room Air Intake and Output 07/10/22 07/11/22 07/11/22 21:59 05:59 13:59 Intake Total 640 200 120 Output Total 1025 1050 250 Balance -385 -850 -130 Weight 95.436 kg Intake & Output: Intake & Output 07/10/22 07/11/22 07/11/22 21:59 05:59 13:59 Intake Total 640 200 120 Output Total 1025 1050 250 Balance -385 -850 -130 Weight 95.436 kg Intake: Oral 640 200 120 Output: Void Amount 1025 1050 250 Other: Meal Dinner Breakfast Percent of Meal Consumed 75% 100% Feeding Ability Independent Independent Urine Appearance Clear Urine Color Yellow Urine Odor Normal Exam: General: Alert, Awake, No acute Distress Eyes/N/T: EOMI, Head/Neck: neck supple, CV: RRR, No murmurs, Pulm: Clear b/l, no wheezing/rhonchi/rales Abd: soft, nontender, +BS x4 Ext: no clubbing/cyanosis/edema Neuro: Alert, Positive for horizontal nystagmus, intact motor, intact sensation,, moves all extremities, Skin: warm/dry OBJ DATA Labs CBC & Chem 7: 07/10/22 06:18 07/09/22 05:28 Labs: Abnormal Lab Results 07/10/22 07/09/22 07/08/22 06:18 05:28 21:43 WBC RBC Hgb Hct 53.3 H 51.1 H MPV 11.2 H 11.6 H Neut % (Auto) Lymph % (Auto) Lymph # (Auto) 1.43 L Absolute Neutrophils Carbon Dioxide Anion Gap Glucose Urine Cocaine Screen Suspect positive A 07/08/22 07/08/22 08:19 08:19 WBC 11.7 H RBC 6.47 H Hgb 19.1 H Hct 56.7 H MPV 11.3 H Neut % (Auto) 78.2 H Lymph % (Auto) 13.5 L Lymph # (Auto) Absolute Neutrophils 9.18 H Carbon Dioxide 19 L Anion Gap 17.0 H Glucose 121 H Urine Cocaine Screen Meds: Medications Acetaminophen (Acetaminophen 325 Mg Tablet) 650 mg PO Q6HP PRN; Protocol PRN Reason: Per Pain Protocol/Fever > 101 Amlodipine Besylate (Amlodipine 5 Mg Tablet) 5 mg PO DAILY [facility] Last Admin: 07/11/22 08:15 Dose: 5 mg Docusate Sodium (Docusate Sodium 100 Mg Capsule) 100 mg PO BID [facility] Last Admin: 07/11/22 08:15 Dose: 100 mg Meclizine HCl (Meclizine 25 Mg Tablet) 25 mg PO TIDP PRN PRN Reason: Vertigo Last Admin: 07/11/22 05:18 Dose: 25 mg Ondansetron HCl (Ondansetron 4 Mg/2 Ml Vial) 4 mg IV Q6HP PRN PRN Reason: Nausea And Vomiting Last Admin: 07/11/22 05:23 Dose: 4 mg Senna (Sennosides 1 Tablet) 2 tab PO HS [facility] Last Admin: 07/10/22 20:19 Dose: 2 tab Sodium Chloride (0.9 % Sodium Chloride 10 Ml Syringe) 10 ml IV Q8 [facility] Last Admin: 07/11/22 05:19 Dose: 10 ml A/P Narrative A/P Narrative: A: #Peripheral vertigo of uncertain etiology, possibly BPPV versus vestibular neuritis versus Mnire's disease versus other cause of peripheral vertigo -MRI brain neg for acute pathology but does show old infarcts #Tinnitus: #Polycythemia: #h/o CVA per imaging: #Hypertension: #Cocaine use disorder: #h/o renal stones: Plan: -Meclizine as needed for vertigo, prn diazepam, zofran -Continue Norvasc 5 mg daily -Follow serum Erythropoietin -Discontinue IV fluid -PT for vestibular rehab -f/u Outpatient work-up for polycythemia 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
[2022-07-11] MEDS ORDERED: diphenhydrAMINE 25 MG CAPSULE PO ONE (09:06)
[2022-07-11] MEDS ORDERED: DIAZEPAM 10 MG/2 ML SYRINGE IV ONE (09:23)
[2022-07-11] MEDS ORDERED: ONDANSETRON 4 MG ODT TABLET SL ONE (09:24)
[2022-07-11] MEDS: SENNOSIDES 1 TABLET PO SCH (21:32)
[2022-07-12] MEDS: 0.9 % SODIUM CHLORIDE 10 ML SYRINGE IV SCH ×3 (07:56→22:35)
[2022-07-12] MEDS: amLODIPine 5 MG TABLET PO SCH (07:56)
[2022-07-12] MEDS: DOCUSATE SODIUM 100 MG CAPSULE PO SCH ×2 (07:56→19:54)
--- NOTE | 2022-07-12 09:07 | Internal Med Progress Note ---
SUBJECTIVE Subjective Patient information: Note initiated : 07/12/22 at 9:02 am Service Date, if different from initiated Date: [] Patient: Souleymane Naik 71 y/o M admitted on 07/10/22 for N/v dizzy. Chief Complaint: [] Interval history: Mr. Naik is a 71 year old with a chief complaint of "dizziness". He says it started at home several days ago. It was initially associated changes in hearing, the patient says both ears were affected. The patient is also had nausea and vomiting. He denies recent fevers chills, no headaches, no chest pa in, no abdominal discomfort. In the ED, the patient had a mild leukocytosis, elevated hemoglobin and hematocrit. CT head without contrast not show any acute changes. MRI brain did not show any acute changes. Hospital medicine was consulted for admission. 07/09 Vertigo somewhat improved today but still causing significant impairment, continues to have left beating horizontal nystagmus and tendinitis in left ear. Hemoglobin improved after receiving IV fluids, leukocytosis resolved. None anion gap metabolic acidosis resolved. Urine drug screen was positive for cocaine. PT following for vestibular rehab. 07/10 The patient said he had a fairly restful night however symptoms occurred when he sat up to the side of the bed. Physical therapy has not seen the patient yet, awaiting physical therapy for vestibular rehab which will hopefully improve the patient's symptoms if they are secondary to benign paroxysmal positional vertigo. If symptoms are secondary to vestibular neuritis or Mnire's disease or other cause of peripheral vertigo they will take longer to resolve. Discontinued IV fluid. 07/11 No overnight event or new complaints. Has vertigo when he gets up but has not been up today yet. Dates he has some double vision during that time. 07/12 Patient did not try to get out of bed yesterday because he felt drowsy from the medication. PT tried Amanda maneuver on the patient. Patient complains of double vision times. Review of Systems: denies headache/fever/chills/nausea/vomiting/chest or abdominal pain/cough/dyspnea/diarrhea. Otherwise see above. Constitutional Vitals: Vital Signs Temp Pulse Resp BP Pulse Ox O2 Del Method 97.5 F 67 18 144/90 93 07/12/22 07:52 07/12/22 07:52 07/12/22 07:52 07/12/22 07:52 07/12/22 07:52 07/12/22 07:52 Period Temp Pulse Resp BP Sys/Concepcion Pulse Ox O2 Del Method O2 Flow Rate Last 24 Hr 97.5 F-98.7 F 66-105 16-20 114-155/69-90 91-96 Room Air-Room Air Intake and Output 07/11/22 07/12/22 07/12/22 21:59 05:59 13:59 Intake Total 100 Output Total 375 Balance -275 Weight 95.345 kg Intake & Output: Intake & Output 07/11/22 07/12/22 07/12/22 21:59 05:59 13:59 Intake Total 100 Output Total 375 Balance -275 Weight 95.345 kg Intake: Oral 100 Output: Void Amount 375 Other: Meal Dinner Percent of Meal Consumed 100% Feeding Ability Independent Urine Appearance Clear Urine Color Dark Yellow OBJ DATA Labs CBC & Chem 7: 07/10/22 06:18 07/09/22 05:28 Labs: Abnormal Lab Results 07/10/22 07/09/22 06:18 05:28 Hct 53.3 H 51.1 H MPV 11.2 H 11.6 H Lymph # (Auto) 1.43 L Meds: Medications Acetaminophen (Acetaminophen 325 Mg Tablet) 650 mg PO Q6HP PRN; Protocol PRN Reason: Per Pain Protocol/Fever > 101 Amlodipine Besylate (Amlodipine 5 Mg Tablet) 5 mg PO DAILY [facility] Last Admin: 07/12/22 07:56 Dose: 5 mg Clonidine HCl (Clonidine Hcl 0.1 Mg Tablet) 0.1 mg PO Q2HP PRN PRN Reason: Hypertension SBP>150 Docusate Sodium (Docusate Sodium 100 Mg Capsule) 100 mg PO BID [facility] Last Admin: 07/12/22 07:56 Dose: 100 mg Meclizine HCl (Meclizine 25 Mg Tablet) 25 mg PO TIDP PRN PRN Reason: Vertigo Last Admin: 07/11/22 05:18 Dose: 25 mg Ondansetron HCl (Ondansetron 4 Mg/2 Ml Vial) 4 mg IV Q6HP PRN PRN Reason: Nausea And Vomiting Last Admin: 07/11/22 17:49 Dose: 4 mg Senna (Sennosides 1 Tablet) 2 tab PO [facility] Last Admin: 07/11/22 21:32 Dose: 2 tab Sodium Chloride (0.9 % Sodium Chloride 10 Ml Syringe) 10 ml IV Q8 YARELIS Last Admin: 07/12/22 07:56 Dose: 10 ml A/P Narrative A/P Narrative: A: #Peripheral vertigo of uncertain etiology, possibly BPPV vs vestibular neuritis vs Mnire's disease vs other cause of peripheral vertigo -MRI brain neg for acute pathology but does show old infarcts #Tinnitus: hasn't had for a few days #Polycythemia: #h/o CVA per imaging: #Hypertension: #Cocaine use disorder: #h/o renal stones: Plan: -Meclizine as needed for vertigo, prn diazepam, zofran -Continue Norvasc 5 mg daily -Follow serum Erythropoietin -Discontinue IV fluid -PT for vestibular rehab -f/u Outpatient work-up for polycythemia -referral to ENT -ppx: lovenox CODE STATUS: Leasing Property Manager Spent With Patient Time: Total time spent is greater than 50% in coordination of care (as documented) at patient's floor/unit and/or counseling patient: Total time spent with greater than 50% in coordination of care (as documented) at patient's floor/unit and/or counseling patient:: 25 - 35 minutes QUALITY Stroke Symptom Onset Unknown: No VTE Deep Vein Thrombosis/Pulmonary Embolism Present on Admission: No
[2022-07-12] MEDS: ENOXAPARIN 40 MG/0.4 ML SYRINGE SQ SCH (10:43)
[2022-07-12] MEDS: ONDANSETRON 4 MG/2 ML VIAL IV PRN ×2 (10:46→16:02)
[2022-07-12] MEDS: MECLIZINE 25 MG TABLET PO PRN ×2 (14:34→19:55)
[2022-07-12] MEDS: SENNOSIDES 1 TABLET PO SCH (19:54)
[2022-07-13] MEDS: 0.9 % SODIUM CHLORIDE 10 ML SYRINGE IV SCH ×2 (05:10→13:18)
[2022-07-13] MEDS: DOCUSATE SODIUM 100 MG CAPSULE PO SCH (08:57)
[2022-07-13] MEDS: ENOXAPARIN 40 MG/0.4 ML SYRINGE SQ SCH (08:57)
[2022-07-13] MEDS: amLODIPine 5 MG TABLET PO SCH (08:57)
[2022-07-13] MEDS ORDERED: ONDANSETRON 4 MG ODT TABLET SL PRN (09:05)
[2022-07-14 14:36] LABS: Erythropoietin-SO 18.7 mIU/mL (2.6-18.5)
[2022-07-22 09:17] LABS: Cocaine Confirmation Positive
== END 2022-07-13 15:05 | DRG 149 ==
LOC: ED 07:51 → MEDSUR 07:51
PROVIDERS: ADMIT Internal Medicine; ATTEND Internal Medicine

== ENCOUNTER 2023-05-05 09:27 | Inpatient (IN) ==
--- NOTE | 2023-05-05 10:00 | Emergency Department Note ---
Fall HPI General Chief Complaint: Fall Stated Complaint: head injury Time Seen by Provider: 05/05/23 09:39 Source: patient Mode of arrival: wheelchair Limitations: no limitations History of Present Illness HPI Narrative: Narrative: Patient is a 72-year-old male that comes into the emergency department today reporting that he fell and hit his head 3 days ago. Patient reports that he tripped and had a ground-level fall and did not lose any consciousness. He had some bleeding to his scalp which had stopped and is no longer bleeding. He has aching sensation to his head and he feels that there may be a slight depressed deformity on his scalp. He has not had any confusion, vision changes, or weakness. He is not currently on any blood thinners. Patient has an infected right first toe that he believes for started with the toenail fungus infection and started to become red, swollen, and developed an ulcer. He saw his primary care and was started on antibiotic for this over the last couple weeks. He finished antibiotic but has noticed that this is continuing to get larger in size with redness, swelling, and states "this is pretty bad". He has noticed a nonpruritic rash to his lower extremities that developed last 3 days after it fell. He has not had any hematuria, dysuria, melena, or hematochezia. She denies any liver disease and denies any alcohol use. Related Data Home Medications Medication Instructions Recorded Confirmed albuterol 90 mcg/actuation aerosol 25 mcg inhalation QDAY PRN 11/15/22 03/29/23 inhaler loratadine 10 mg tablet (Allergy 10 mg PO QDAY 11/15/22 03/29/23 Relief (loratadine)) Previous Rx's Medication Instructions Recorded atorvastatin 20 mg tablet 20 mg PO QDAY #90 tabs 12/07/22 blood pressure test kit-large #1 ea 12/07/22 cholecalciferol (vitamin D3) 25 25 mcg PO QDAY #90 caps 12/16/22 mcg (1,000 unit) capsule bupropion HCl 100 mg tablet 100 mg PO BID #180 tabs 12/22/22 tamsulosin 0.4 mg capsule (Flomax) 0.8 mg PO QDAY #180 caps 02/03/23 amlodipine 5 mg tablet 5 mg PO DAILY #90 tabs 03/15/23 aspirin 325 mg tablet 325 mg PO QDAY #90 tabs 03/15/23 gabapentin 300 mg capsule 300 mg PO QHS #90 caps 03/15/23 umeclidinium 62.5 mcg/actuation 1 inh inhalation QDAY #30 ea 03/15/23 blister powder for inhalation (Incruse Ellipta) meclizine 25 mg tablet 25 mg PO TIDP PRN Vertigo #30 tabs 03/28/23 cephalexin 500 mg capsule 500 mg PO TID 7 days #21 caps 03/29/23 Allergies Allergy/AdvReac Type Severity Reaction Status Date / Time No Known Drug Allergies Allergy Verified 03/29/23 15:18 Review of Systems ROS ROS Narrative: Narrative: All systems ED: reviewed and negative except as stated. [facility] Narrative Patient History Narrative: Narrative: Medical/Surgical/Family History All Active Problems (Updated 05/05/23 @ 13:18 by Gadiel Riddle DNP) Acute osteomyelitis of toe of right foot (Acute) Purpura (Acute) Cellulitis (Acute) Cellulitis and abscess of foot (Acute) Pneumonia (Chronic) Flank pain (Chronic) Cocaine intoxication (Chronic) Acute dehydration (Chronic) Other and unspecified peripheral vertigo (Chronic) Hypertension (Chronic) Cocaine use disorder (Chronic) Tobacco use (Chronic) Alcohol use disorder, mild, in early remission, abuse (Chronic) Hepatitis C, chronic (Chronic) CVA (cerebral vascular accident) (Chronic) Peripheral neuropathy (Chronic) COPD (chronic obstructive pulmonary disease) (Chronic) Depression (Chronic) BPH associated with nocturia (Chronic) Deaf (Chronic) Ear infection (Chronic) Vertigo (Chronic) Head problem (Chronic) Benign paroxysmal vertigo of left ear (Chronic) Cocaine dependence with withdrawal (Chronic) Polycythemia vera (Chronic) BPH w urinary obs/LUTS (Chronic) Essential hypertension (Chronic) Muscle weakness (Chronic) Moderate persistent asthma (Chronic) Polycythemia (Chronic) Nystagmus (Chronic) Medicare annual wellness visit, initial (Acute) Swelling of toe of right foot (Acute) Chest pain (Chronic) Medical History (Updated 05/05/23 @ 13:18 by Gadiel Riddle DNP) Acute dehydration Alcohol use disorder, mild, in early remission, abuse History 2+ year per night, cessation 06/2022 -Rare use 02/2023 Benign paroxysmal vertigo of left ear BPH associated with nocturia BPH w urinary obs/LUTS Chest pain Oncetwice a week Cocaine dependence with withdrawal Cocaine intoxication Cocaine use disorder Status post remission 06/2022 COPD (chronic obstructive pulmonary disease) CVA (cerebral vascular accident) Deaf in one ear Depression Ear infection Essential hypertension Flank pain Head problem "Rocks in head/Gravel in ears" Hepatitis C, chronic Status post treatment around 2019 per patient report Hypertension Medicare annual wellness visit, initial Moderate persistent asthma Muscle weakness Nystagmus Other and unspecified peripheral vertigo Peripheral neuropathy Left lower extremity, distal upper extremity Pneumonia Polycythemia Polycythemia vera Swelling of toe of right foot Tobacco use Remission since 06/2022 Vertigo Surgical History History of appendectomy (~2010) History of tonsillectomy Family History Father Dementia Mother High blood pressure Social History Smoking Status: Former smoker Alcohol Intake Frequency: a few times a week Substance Use: crack/cocaine Exam Narrative Narrative: Narrative: General Limitations: no limitations General appearance: Present alert and in no apparent distress Expanded Head Head physical: Absent raccoon eyes, Harrison's sign or tenderness of temporal artery Head image: 1. Large amount of dried blood and brown scab present. No swelling or erythema. Mild tenderness with palpation. No skull deformity noted. Eye Eye: Present normal appearance, PERRL, EOMI and visual angel intact; Absent scleral icterus, conjunctival injection, nystagmus or periorbital swelling ENT ENT: Present normal exam, normal oropharynx and mucous membranes moist; Absent nasal congestion Neck Neck: Present normal inspection and full ROM; Absent tenderness or lymphadenopathy Chest Chest: Present normal inspection; Absent symmetric chest wall rise or rash Respiratory Respiratory: Present normal lung sounds bilaterally; Absent respiratory distress, rales/crackles, wheezes or accessory muscle use Cardiovascular Cardiovascular: Present regular rate, normal rhythm and normal heart sounds Adbominal Abdominal: Present soft and normal bowel sounds; Absent distention, tenderness, rigidity, ascites, mass or pulsatile mass Expanded Lower Extremity Foot/toe: Present other (Full range of motion of the right first toe. Black necrotic tissue to the distal end of toe at the wound edges. Pedal pulse 2+. Decreased sensation to light touch to the distal end of right first toe.) Top foot image: 1. Erythema with moderate swelling. Bottom foot image: 1. Wound with eschar to the distal end of toe. Edges are black. Serosanguineous discharge with foul odor. Neurovascular/Tendon: Present normal capillary refill Neurological Neurological: Present alert, oriented X3 and CN II-XII intact; Absent motor sens ory deficit Psychiatric Psychiatric: Present normal affect and normal mood Skin Skin: Present warm (WNL) and dry Expanded Skin Type of lesion: Present rash (Nonblanchable Purpura to the right and left lower extremities from mid thigh to the ankles.) Course Vital Signs Vital signs: Vital Signs Temperature 98.3 F 05/05/23 09:33 Pulse Rate 72 05/05/23 09:33 Respiratory Rate 18 05/05/23 09:33 Blood Pressure 117/76 05/05/23 09:33 Pulse Oximetry (%) 97 05/05/23 09:33 Oxygen Delivery Method Room Air 05/05/23 09:33 Temperature 98.3 F 05/05/23 09:33 Pulse Rate 58 L 05/05/23 13:00 Respiratory Rate 19 05/05/23 10:16 Blood Pressure 134/60 05/05/23 13:00 Pulse Oximetry (%) 99 05/05/23 13:00 Oxygen Delivery Method Room Air 05/05/23 10:50 MDM MDM Narrative Medical decision making narrative: Narrative: Patient is a 72-year-old male who had a mechanical ground-level fall 3 days ago and hit his head came into the emergency department today. He was concerned abo ut having small depression in the skull and also the right first toe that is infected. Today noncontrast head CT was obtained for further evaluation of the patient's mechanical ground-level fall. Patient's head CT today is negative as read by radiologist. I was able to review the imaging and I would have nothing else to add to the report today. The patient had been treated with oral antibiotic as an outpatient over the last couple of months with cephalexin. He has not had much improvement with his symptoms the cellulitis on his toe. The wound to the distal end of the toe has necrotic tissue with eschar. I ordered an x-ray of the right first toe today. The x-ray shows osteolytic fragmentation of the first distal phalanx with marked associated soft tissue swelling consistent with osteomyelitis and cellulitis. There is a first PIP dislocation dorsally. The patient has purpura rash to the bilateral lower extremities that apparently started 3 days ago according to the patient. Patient CBC is rather unremarkable today. Platelets are normal. His RDW is minimally elevated at 15 but otherwise all normal findings on his CBC. Patient's INR today is 1.1. His [id number] chemistry panel shows a creatinine of 1.6 and BUN of 33. His baseline creatinine from February of this year was 1.4 and BUN of 27. Patient was given 1 L of IV normal saline for hydration today will likely help improve some renal function. Patient did have some nausea today and gave him 4 mg of ondansetron i ntravenously. This helped with the patient's nausea. Given that the patient has taken oral outpatient antibiotic and has failed improvement for the toe infection and findings today reveal osteomyelitis I feel that consideration of hospital admission for IV antibiotic and consultation with orthopedic surgeon would be appropriate today for the patient. I was able to speak with Dr. Jerez who is on-call today for orthopedics and he agreed to have patient admitted with hospitalist to manage the cellulitis with IV antibiotic and he will plan on seeing the patient and consideration of distal to e amputation. Today in the emergency department patient was given 3.375 g of Zosyn IV after the culture was obtained. I was able to speak with Dr. Washburn who is on today for hospitalist and he had excepted patient for hospital admission to [facility]. Dr. Jerez came into the emergency department and saw the patient today and plan will be for patient to be admitted at [facility] for the cellulitis and osteomyelitis to the toe. Lab Data Lab results reviewed: Yes I reviewed the patient's lab results. 05/05/23 10:10 Labs: Lab Results 05/05/23 05/05/23 05/05/23 Range/Units 10:10 10:10 10:11 WBC 9.0 (4.5-11.0) K/mcL RBC 5.53 (4.63-6.08) M/mcL Hgb 15.2 (13.7-17.5) g/dL Hct 48.0 (40.1-51.0) % POC Hct 47.0 (41-55) MCV 86.8 (80.0-100.0) fL MCH 27.5 (26.0-34.0) pg MCHC 31.7 (31.0-36.0) g/dL RDW 15.0 H (11.5-14.5) % Plt Count 322 (140-440) K/mcL MPV 11.8 (8.8-12.5) fL Immature Gran % (Auto) 0.3 (0.0-0.5) % Neut % (Auto) 70.0 (38.0-78.0) % Lymph % (Auto) 17.4 (15.5-49.0) % Kane % (Auto) 9.8 (1.0-12.0) % Eos % (Auto) 2.3 (0.0-7.0) % Baso % (Auto) 0.2 (0.0-2.0) % Lymph # (Auto) 1.57 (1.50-4.80) K/mcL Kane # (Auto) 0.88 (0.10-0.90) K/mcL Eos # (Auto) 0.21 (0.00-0.70) K/mcL Baso # (Auto) 0.02 (0.00-0.30) K/mcL Immature Gran # 0.03 (0.00-0.05) K/mcl Absolute Neutrophils 6.30 (1.80-8.00) K/mcL POC PT (11.9-14.5) POC INR (0.8-1.2) POC Sodium 140 (133-145) POC Potassium 4.5 (3.3-5.1) POC Chloride 105 (96-108) POC Total CO2 27.0 (22-30) POC Anion Gap 14.0 (8.0-16.0) POC BUN 33 H (6-20) POC Creatinine 1.6 H (0.6-1.2) POC Glucose 90 (70-105) POC WB Ioniz Calcium 1.16 (1.16-1.32) Total Bilirubin 0.6 (0.1-1.0) mg/dL Direct Bilirubin < 0.2 (0-0.3) mg/dL AST 12 (<40) U/L ALT 13 (<40) U/L Alkaline Phosphatase 90 (39-117) U/L Total Protein 7.2 (5.9-8.4) gm/dL Albumin 3.7 (3.2-5.2) gm/dL Globulin 3.5 (2.2-3.7) gm/dL 05/05/23 Range/Units 10:27 WBC (4.5-11.0) K/mcL RBC (4.63-6.08) M/mcL Hgb (13.7-17.5) g/dL Hct (40.1-51.0) % POC Hct (41-55) MCV (80.0-100.0) fL MCH (26.0-34.0) pg MCHC (31.0-36.0) g/dL RDW (11.5-14.5) % Plt Count (140-440) K/mcL MPV (8.8-12.5) fL Immature Gran % (Auto) (0.0-0.5) % Neut % (Auto) (38.0-78.0) % Lymph % (Auto) (15.5-49.0) % Kane % (Auto) (1.0-12.0) % Eos % (Auto) (0.0-7.0) % Baso % (Auto) (0.0-2.0) % Lymph # (Auto) (1.50-4.80) K/mcL Kane # (Auto) (0.10-0.90) K/mcL Eos # (Auto) (0.00-0.70) K/mcL Baso # (Auto) (0.00-0.30) K/mcL Immature Gran # (0.00-0.05) K/mcl Absolute Neutrophils (1.80-8.00) K/mcL POC PT 13.2 (11.9-14.5) POC INR 1.1 (0.8-1.2) POC Sodium (133-145) POC Potassium (3.3-5.1) POC Chloride (96-108) POC Total CO2 (22-30) POC Anion Gap (8.0-16.0) POC BUN (6-20) POC Creatinine (0.6-1.2) POC Glucose (70-105) POC WB Ioniz Calcium (1.16-1.32) Total Bilirubin (0.1-1.0) mg/dL Direct Bilirubin (0-0.3) mg/dL AST (<40) U/L ALT (<40) U/L Alkaline Phosphatase (39-117) U/L Total Protein (5.9-8.4) gm/dL Albumin (3.2-5.2) gm/dL Globulin (2.2-3.7) gm/dL Radiology Data Radiology results reviewed: Yes I reviewed the patient's radiology results. Radiology results narrative: Ordering Physician: Gadiel Riddle DNP Date of Service: 05/05/23 Procedure(s): CT head/brain [facility] Accession Number(s): [id number] CLINICAL INFORMATION: Trauma-fall COMPARISON: None. TECHNIQUE: 2.5 mm helical slices were obtained in the skull base to vertex. Following reconstruction, axial reformatted images were reviewed at bone and parenchymal windows. The exam was performed using radiation dose optimization techniques including, but not limited to, automated exposure control, adjustment of the mA and/or kV according to patient size and use of iterative reconstruction technique. FINDINGS: The ventricles, sulci, fissures, and cisterns are symmetrically enlarged compatible with mild age-related atrophy. No extra-axial fluid collections are identified. Mild patchy chronic ischemic changes, in the deep cerebral white matter, are expected for age. 8mm remote lacunar infarct in the posterior right lentiform nucleus seen as before. The 1 cm remote lacunar infarct in the left frontal lobe and a 2 cm remote lacunar infarct in the right frontal lobe. There is no hemorrhage, mass effect, or edema. Bone windows show no osseous abnormality. IMPRESSION: Mild atrophy and chronic ischemic changes in the deep cerebral white matter-expected for age. Remote lacunar infarct as described. No cerebral hemorrhage or other acute finding Interpreted and Authenticated by: Ross Gao 05/05/23 Ordering Physician: Gadiel Riddle DNP Date of Service: 05/05/23 Procedure(s): XR toe RT 1 Accession Number(s): [id number] CLINICAL INFORMATION: infection COMPARISON: None. FINDINGS: There is subtotal osteolysis of the first distal phalanx with marked surrounding soft tissue swelling compatible with severe osteomyelitis and cellulitis. The fragmented phalanx is dislocated dorsally. IMPRESSION: Subtotal osteolytic fragmentation of the first distal phalanx with marked associated soft tissue swelling patible with osteomyelitis and cellulitis. First PIP dislocation Discharge Plan Patient/Caregiver Discharge Instructions Pt seen by WATER PROJECT MANAGER/PA only: No Clinical Impression: Acute osteomyelitis of toe of right foot, Purpura Cellulitis Qualifiers: Site of cellulitis: extremity Site of cellulitis of extremity: lower extremity Laterality: right Qualified Code(s): L03.115 - Cellulitis of right lower limb Patient Disposition: Xfer As Inpt ([facility]) Follow up with: Jose Moreno MD [Primary Care Provider] - Prescriptions: No Action cholecalciferol (vitamin D3) 25 mcg (1,000 unit) capsule 25 mcg PO QDAY Qty: 90 3RF bupropion HCl 100 mg tablet 100 mg PO BID Qty: 180 1RF Patient Comments: PATIENT HAS STOPPED TAKING THIS tamsulosin [Flomax] 0.4 mg capsule 0.8 mg PO QDAY Qty: 180 3RF meclizine 25 mg tablet 25 mg PO TIDP PRN (Reason: Vertigo) Qty: 30 0RF loratadine [Allergy Relief (loratadine)] 10 mg tablet 10 mg PO QDAY Incruse Ellipta 62.5 mcg/actuation blister with device 1 inh inhalation QDAY Qty: 30 5RF amlodipine 5 mg tablet 5 mg PO DAILY Qty: 90 3RF aspirin 325 mg tablet 325 mg PO QDAY Qty: 90 3RF gabapentin 300 mg capsule 300 mg PO QHS Qty: 90 3RF Rx Instructions: and BID PRN (DME) blood pressure test kit-large Kit See Rx Instructions .Route Qty: 1 0RF Rx Instructions: Monitor daily atorvastatin 20 mg tablet 20 mg PO QDAY Qty: 90 3RF cephalexin 500 mg capsule 500 mg PO TID 7 Days Qty: 21 0RF albuterol 90 mcg/actuation aerosol 25 mcg INHALATION QDAY PRN
[2023-05-05] MEDS ORDERED: 0.9 % SODIUM CHLORIDE 1,000 ML IV ONE (10:07)
[2023-05-05 10:27] LABS: POC Calcium, Ionized 1.16 (1.16-1.32); POC Creatinine 1.6 (0.6-1.2); POC Potassium 4.5 (3.3-5.1)
[2023-05-05 10:30] LABS: POC INR 1.1 (0.8-1.2); POC Pro Time 13.2 (11.9-14.5)
[2023-05-05] MEDS ORDERED: PIPERACILLIN SODIUM/TAZOBACTAM 3.375 GM in DEXTROSE 5% IN WATER 50 ML IV ONE (10:55)
[2023-05-05 11:09] LABS: Basophils # (Auto) 0.02 K/mcL (0.00-0.30); Basophils % (Auto) 0.2 % (0.0-2.0); Eosinophils # (Auto) 0.21 K/mcL (0.00-0.70); Eosinophils % (Auto) 2.3 % (0.0-7.0); Hemoglobin 15.2 g/dL (13.7-17.5); Lymphocytes # (Auto) 1.57 K/mcL (1.50-4.80); Lymphocytes % (Auto) 17.4 % (15.5-49.0); Mean Cell Volume 86.8 fL (80.0-100.0); Mean Corpuscular HGB Conc 31.7 g/dL (31.0-36.0); Mean Platelet Volume 11.8 fL (8.8-12.5); Monocytes # (Auto) 0.88 K/mcL (0.10-0.90); Monocytes % (Auto) 9.8 % (1.0-12.0); Platelet Count 322 K/mcL (140-440); RBC 5.53 M/mcL (4.63-6.08)
[2023-05-05] MEDS ORDERED: ONDANSETRON 4 MG/2 ML VIAL IV ONE (11:15)
[2023-05-05] MEDS ORDERED: ONDANSETRON 4 MG/2 ML VIAL ONE (11:16)
--- NOTE | 2023-05-05 11:27 | XRay Report ---
CLINICAL INFORMATION: infection COMPARISON: None. FINDINGS: There is subtotal osteolysis of the first distal phalanx with marked surrounding soft tissue swelling compatible with severe osteomyelitis and cellulitis. The fragmented phalanx is dislocated dorsally. IMPRESSION: Subtotal osteolytic fragmentation of the first distal phalanx with marked associated soft tissue swelling patible with osteomyelitis and cellulitis. First PIP dislocation Interpreted and Authenticated by: Ross Gao 05/05/23
[2023-05-05 11:33] LABS: ALT/SGPT 13 U/L (<40); AST/SGOT 12 U/L (<40); Albumin 3.7 gm/dL (3.2-5.2); Alkaline Phosphatase 90 U/L (39-117); Bilirubin,Direct < 0.2 mg/dL (0-0.3); Bilirubin,Total 0.6 mg/dL (0.1-1.0); Globulin 3.5 gm/dL (2.2-3.7)
--- NOTE | 2023-05-05 11:36 | Cat Scan Report ---
CLINICAL INFORMATION: Trauma-fall COMPARISON: None. TECHNIQUE: 2.5 mm helical slices were obtained in the skull base to vertex. Following reconstruction, axial reformatted images were reviewed at bone and parenchymal windows. The exam was performed using radiation dose optimization techniques including, but not limited to, automated exposure control, adjustment of the mA and/or kV according to patient size and use of iterative reconstruction technique. FINDINGS: The ventricles, sulci, fissures, and cisterns are symmetrically enlarged compatible with mild age-related atrophy. No extra-axial fluid collections are identified. Mild patchy chronic ischemic changes, in the deep cerebral white matter, are expected for age. 8mm remote lacunar infarct in the posterior right lentiform nucleus seen as before. The 1 cm remote lacunar infarct in the left frontal lobe and a 2 cm remote lacunar infarct in the right frontal lobe. There is no hemorrhage, mass effect, or edema. Bone windows show no osseous abnormality. IMPRESSION: Mild atrophy and chronic ischemic changes in the deep cerebral white matter-expected for age. Remote lacunar infarct as described. No cerebral hemorrhage or other acute finding Interpreted and Authenticated by: Ross Gao 05/05/23
--- NOTE | 2023-05-05 12:52 | Internal Med History&Physical ---
HPI History of Present Illness Patient information: Note initiated : 05/05/23 at 12:51 pm Service Date, if different from initiated Date: [] Patient: Souleymane Naik 72 y/o M admitted on . Chief Complaint: [] History of present illness: Mr. Naik is a 72 year old M Presents the ED with several complaints. Patient has had after falling several days ago after tripping, he did not lose consciousness but did hit his head. He did have some scalp bleeding afterwards which is stopped. He today decided he was worried about a skull flap fracture and so he came to the ED. he also developed a petechial rash of his legs and he said he did not notice it until he after he fell. Patient denies any recent medications and actually said he is has not taken his medications for a week or so. Patient denies any headache had a little bit of nausea earlier but no vomiting. No chest pain shortness of breath stomach pain. He also complains of a right great toe infection which she is been dealing with for some time and could not give me a timeframe of when he felt he was last normal. He used to be a patient of Dr. Granados'trav but did see Dr. Wilder at the beginning of March for a toe infection and was given Keflex. In the ED his BUN/creatinine was mildly elevated above baseline. X-ray of the foot showed osteomyelitis of the great toe. Patient was started on IV antibiotics and wound cultures were obtained in the ED. Dr. Jerez was contacted who will likely amputate the toe in the OR shortly. Review of Systems: Pertinent positives as above. Denies headache/fever/chills/vomiting/chest or abdominal pain/cough/dyspnea/diarrhea. Remaining 10 point review of system reviewed negative PHYSICAL EXAM General: Alert, Awake, No acute Distress Eyes/N/T: EOMI, no scleral icterus, PERRL, dry MM Head/Neck: neck supple, full ROM, normocephalic atraumatic CV: RRR, No murmurs, normal s1/s2 Pulm: Clear b/l, no wheezing/rhonchi/rales, no respiratory distress Abd: soft, nontender, +BS x4 Ext: no clubbing/cyanosis/edema to LE, nontender, Right great toe necrotic tissue and surrounding cellulitis with exposed bone Neuro: Alert, CN 2-12 grossly intact, no focal deficits, moves all extremities, , decreased sensations b/l lower ext Psychiatric: Skin: warm/dry, normal color PFSH PFSH All Active Problems (Updated 05/05/23 @ 13:18 by Gadiel Riddle DNP) Acute osteomyelitis of toe of right foot (Acute) Purpura (Acute) Cellulitis (Acute) Cellulitis and abscess of foot (Acute) Pneumonia (Chronic) Flank pain (Chronic) Cocaine intoxication (Chronic) Acute dehydration (Chronic) Other and unspecified peripheral vertigo (Chronic) Hypertension (Chronic) Cocaine use disorder (Chronic) Tobacco use (Chronic) Alcohol use disorder, mild, in early remission, abuse (Chronic) Hepatitis C, chronic (Chronic) CVA (cerebral vascular accident) (Chronic) Peripheral neuropathy (Chronic) COPD (chronic obstructive pulmonary disease) (Chronic) Depression (Chronic) BPH associated with nocturia (Chronic) Deaf (Chronic) Ear infection (Chronic) Vertigo (Chronic) Head problem (Chronic) Benign paroxysmal vertigo of left ear (Chronic) Cocaine dependence with withdrawal (Chronic) Polycythemia vera (Chronic) BPH w urinary obs/LUTS (Chronic) Essential hypertension (Chronic) Muscle weakness (Chronic) Moderate persistent asthma (Chronic) Polycythemia (Chronic) Nystagmus (Chronic) Medicare annual wellness visit, initial (Acute) Swelling of toe of right foot (Acute) Chest pain (Chronic) Medical History (Updated 05/05/23 @ 13:18 by Gadiel Riddle DNP) Acute dehydration Alcohol use disorder, mild, in early remission, abuse History 2+ year per night, cessation 06/2022 -Rare use 02/2023 Benign paroxysmal vertigo of left ear BPH associated with nocturia BPH w urinary obs/LUTS Chest pain Oncetwice a week Cocaine dependence with withdrawal Cocaine intoxication Cocaine use disorder Status post remission 06/2022 COPD (chronic obstructive pulmonary disease) CVA (cerebral vascular accident) Deaf in one ear Depression Ear infection Essential hypertension Flank pain Head problem "Rocks in head/Gravel in ears" Hepatitis C, chronic Status post treatment around 2019 per patient report Hypertension Medicare annual wellness visit, initial Moderate persistent asthma Muscle weakness Nystagmus Other and unspecified peripheral vertigo Peripheral neuropathy Left lower extremity, distal upper extremity Pneumonia Polycythemia Polycythemia vera Swelling of toe of right foot Tobacco use Remission since 06/2022 Vertigo Surgical History History of appendectomy (~2010) History of tonsillectomy Family History Father Dementia Mother High blood pressure Social History marital status: single occupational status: unemployed smoking status: Current every day smoker smoking status stop date: 06/23/22 alcohol intake frequency: a few times a week substance use type: crack/cocaine MEDS/ALLERGIES Home Medications and Allergies Home Medications Medication Instructions Recorded Confirmed Type atorvastatin 20 mg tablet 20 mg PO QDAY #90 tabs 12/07/22 05/05/23 Rx blood pressure test kit-large #1 ea 12/07/22 05/05/23 Rx cholecalciferol (vitamin D3) 25 25 mcg PO QDAY #90 caps 12/16/22 05/05/23 Rx mcg (1,000 unit) capsule bupropion HCl 100 mg tablet 100 mg PO BID #180 tabs 12/22/22 05/05/23 Rx tamsulosin 0.4 mg capsule (Flomax) 0.8 mg PO QDAY #180 caps 02/03/23 05/05/23 Rx amlodipine 5 mg tablet 5 mg PO DAILY #90 tabs 03/15/23 05/05/23 Rx aspirin 325 mg tablet 325 mg PO QDAY #90 tabs 03/15/23 05/05/23 Rx gabapentin 300 mg capsule 300 mg PO QHS #90 caps 03/15/23 05/05/23 Rx umeclidinium 62.5 mcg/actuation 1 inh inhalation QDAY #30 ea 03/15/23 05/05/23 Rx blister powder for inhalation (Incruse Ellipta) meclizine 25 mg tablet 25 mg PO TIDP PRN Vertigo #30 tabs 03/28/23 05/05/23 Rx albuterol sulfate 90 mcg/actuation 1 puff inhalation Q4HP PRN wheezing 05/05/23 05/05/23 History aerosol inhaler (Ventolin HFA) ondansetron 4 mg disintegrating 4 mg Q4HP PRN nausea/vomiting 05/05/23 05/05/23 History tablet Allergies Allergy/AdvReac Type Severity Reaction Status Date / Time No Known Drug Allergies Allergy Verified 05/05/23 16:11 EXAM Constitutional Vitals: Temp Pulse Resp BP Pulse Ox O2 Del Method 98.3 F 69 19 111/56 96 Room Air 05/05/23 09:33 05/05/23 11:45 05/05/23 10:16 05/05/23 11:45 05/05/23 11:45 05/05/23 10:50 DATA Data Completed and Pending Labs: Labs from last 24 hours 05/05/23 05/05/23 05/05/23 10:27 10:11 10:10 WBC RBC Hgb Hct POC Hct 47.0 MCV MCH MCHC RDW Plt Count MPV Immature Gran % (Auto) Neut % (Auto) Lymph % (Auto) [place] % (Auto) Eos % (Auto) Baso % (Auto) Lymph # (Auto) [place] # (Auto) Eos # (Auto) Baso # (Auto) Immature Gran # Absolute Neutrophils POC PT 13.2 POC INR 1.1 POC Sodium 140 POC Potassium 4.5 POC Chloride 105 POC Total CO2 27.0 POC Anion Gap 14.0 POC BUN 33 H POC Creatinine 1.6 H POC Glucose 90 POC WB Ioniz Calcium 1.16 Total Bilirubin Direct Bilirubin AST ALT Alkaline Phosphatase Total Protein Albumin Globulin Hepatitis A IgM Ab Pending Hep Bs Antigen Pending Hep B Core IgM Ab Pending Hepatitis C Antibody Pending 05/05/23 05/05/23 10:10 10:10 WBC 9.0 RBC 5.53 Hgb 15.2 Hct 48.0 POC Hct MCV 86.8 MCH 27.5 MCHC 31.7 RDW 15.0 H Plt Count 322 MPV 11.8 Immature Gran % (Auto) 0.3 Neut % (Auto) 70.0 Lymph % (Auto) 17.4 [place] % (Auto) 9.8 Eos % (Auto) 2.3 Baso % (Auto) 0.2 Lymph # (Auto) 1.57 [place] # (Auto) 0.88 Eos # (Auto) 0.21 Baso # (Auto) 0.02 Immature Gran # 0.03 Absolute Neutrophils 6.30 POC PT POC INR POC Sodium POC Potassium POC Chloride POC Total CO2 POC Anion Gap POC BUN POC Creatinine POC Glucose POC WB Ioniz Calcium Total Bilirubin 0.6 Direct Bilirubin < 0.2 AST 12 ALT 13 Alkaline Phosphatase 90 Total Protein 7.2 Albumin 3.7 Globulin 3.5 Hepatitis A IgM Ab Hep Bs Antigen Hep B Core IgM Ab Hepatitis C Antibody A/P Narrative A/P Narrative: A: *Right great toe gangrene with osteomyelitis and cellulitis: *b/l LE petechial rash (pigmented purpuric dermatoses, PPD): etiology unknown, recognized monday -?/ venous insufficiency vs infection vs other vs drugs -asymptomatic *NAKUL on CKD III: *COPD(not on home O2): *HTN/HLD: *h/o CVA per imaging: *Cocaine use disorder: *Neuropathy: *Depression: *h/o renal stones: *h/o Polycythemia: * P: -Zosyn, mrsa screen -BC/WC pending -Dr. Jerez for amputation -arterial study -UDS screen -IVF -Monitor renal function/UOP -Monitor replace electrolytes as needed -monitor rash, topical corticosteroids -Continue home Norvasc/statin -Home medication reconciliation -pt/ot -CM for placement needs -ppx: heparin Time Spent With Patient Time: Total time spent is greater than 50% in coordination of care (as documented) at patient's floor/unit and/or counseling patient: Initial: Total time with patient: 75 - 90 minutes
--- NOTE | 2023-05-05 13:03 | History and Physical Report ---
DATE OF ADMISSION: 05/05/2023 IDENTIFICATION: The patient is a 72-year-old gentleman. CHIEF COMPLAINT: Fall with striking his head several days ago, which is the reason he presented to the emergency room. I am called because he has a necrotic great toe on the right, which has failed to improve with antibiotics. HISTORY OF PRESENT ILLNESS: The patient apparently did have a nonsyncopal fall, struck his head several days ago. He presented to the emergency room and has had a CT scan and evaluation. This was felt to be not complicated with any sort of bleed or other problems, but he does complain of a red, angry, cellulitic great toe, which has apparently been an ongoing problem over the last several weeks. He was seen by his primary care provider, Dr. Moreno, and was started on oral antibiotics, but he has only progressively increased with redness and active drainage. PAST MEDICAL HISTORY: COPD, hypertension, history of alcoholism and drug addiction, chronic tobacco use, history of hepatitis C, previous history of a CVA, and peripheral neuropathy. MEDICATIONS: He has a list of other previous medications, but currently takes: 1. Albuterol. 2. Loratadine. 3. Recently on Keflex. ALLERGIES: None. PHYSICAL EXAMINATION: GENERAL: He is awake and alert, answers questions appropriately. HEENT: He does have a laceration of the scalp, but otherwise atraumatic. Pupils are round and reactive. His ENT is within normal limits. NECK: Supple without pain on range of motion. HEART: Regular. LUNGS: Clear. ABDOMEN: Benign. EXTREMITIES: His right lower extremity demonstrates a markedly enlarged, deeply cellulitic great toe with a thickened callus, which is sloughing off. The plantar surface of the great toe shows an ulceration and draining wound, which extends to the bone. This is probably dime-sized and, again, has foul smelling discharge. He has cellulitis to about the midfoot. He does have diffuse purpura throughout the calf bilaterally. He does have brisk capillary refill. IMAGING: His imaging shows extensive osteomyelitis of the distal phalanx. IMPRESSION AND PLAN: Great toe infection with osteomyelitis distal phalanx. This is in need of operative treatment with amputation. This has been discussed with the patient. The surgical procedure, risks, complications, and limitations were reviewed at length. He understands these well and wishes to proceed. We will proceed with amputation of his right great toe. MIKAELAD:ariela Job ID: [id number] Doc ID: [id number] Jayden Jerez MD
[2023-05-05] MEDS ORDERED: LIDOCAINE HCL/PF 100 MG/5 ML SYRINGE IV ONE (14:08)
[2023-05-05] MEDS ORDERED: PROPOFOL 200 MG/20 ML VIAL IV ONE (14:08)
--- NOTE | 2023-05-05 14:21 | XRay Report ---
CLINICAL INFORMATION: pre op COMPARISON: Watch [employer] Person images from abdomen and pelvic CT 04/12/2021 FINDINGS: Heart size, mediastinum and pulmonary vessels are normal. The lungs are clear. No effusions. Moderate chronic elevation right diaphragm is unchanged. IMPRESSION: No acute disease. Moderate stable chronic elevation right diaphragm Interpreted and Authenticated by: Ross Gao 05/05/23
[2023-05-05] MEDS ORDERED: ACETAMINOPHEN 1,000 MG/100 ML BAG IV ONE (14:36)
[2023-05-05] MEDS ORDERED: METHOCARBAMOL 1,000 MG/10 ML VIAL IV PRN (14:36)
[2023-05-05] MEDS ORDERED: MEPERIDINE 25 MG/ML VIAL IV PRN (14:36)
[2023-05-05] MEDS ORDERED: IPRATROPIUM/ALBUTEROL 3 ML AMPUL.NEB NEB PRN ×2 (14:36→16:10)
[2023-05-05] MEDS ORDERED: VANCOMYCIN 1,000 MG in 0.9 % SODIUM CHLORIDE 250 ML IV SCH (14:39)
[2023-05-05 14:40] LABS: Amphetamine Screen,Urine None detected; Barbiturate Screen,Urine None detected; Benzodiazepines Screen,Urine None detected; Cannabinoid Screen,Urine None detected; Cocaine Screen,Urine Suspect Positive; Opiate Screen,Urine None detected; Oxycodone, Urine Screen None detected; Phencyclidine Screen,Urine None detected
--- NOTE | 2023-05-05 14:43 | Brief Operative Note ---
Brief Operative Note Date of procedure: 05/05/23 Pre-op diagnosis: gangrenous great toe with osteo Post-op diagnosis: same Procedure: amputation right great toe Grafts/Implants: No Anesthesia: local and conscious sedation Findings: osteo Complications: none Surgeon: Jayden Jerez Forming Process Worker: Brennon Christie Estimated blood loss (cc): 10 Specimens Removed/Pathology: other
[2023-05-05] MEDS ORDERED: BUPIVACAINE W/EPI 0.5% 50 ML VIAL IJ ONE (15:03)
[2023-05-05] MEDS ORDERED: 0.9 % SODIUM CHLORIDE 1,000 ML IV SCH (16:10)
[2023-05-05] MEDS ORDERED: POTASSIUM CHLORIDE 40 MEQ in DEXTROSE 5% IN WATER 500 ML IV PRN (16:10)
[2023-05-05] MEDS ORDERED: ACETAMINOPHEN 325 MG TABLET PO PRN (16:10)
[2023-05-05] MEDS ORDERED: MAGNESIUM SULFATE 2 GM/50 ML BAG IV PRN (16:10)
[2023-05-05] MEDS ORDERED: HYDROcodone/APAP 5/325MG TABLET PO PRN (16:10)
[2023-05-05] MEDS ORDERED: SENNOSIDES 1 TABLET PO PRN (16:10)
[2023-05-05] MEDS ORDERED: POTASSIUM CHLORIDE 20 MEQ TABLET PO PRN ×2 (16:10)
[2023-05-05] MEDS ORDERED: morphine 4 MG/ML VIAL IV PRN (16:10)
[2023-05-05] MEDS ORDERED: ONDANSETRON 4 MG/2 ML VIAL IV PRN (16:10)
[2023-05-05] MEDS ORDERED: POLYETHYLENE GLYCOL 3350 17 GM PACKET PO PRN (16:10)
[2023-05-05] MEDS: 0.9 % SODIUM CHLORIDE 10 ML SYRINGE IV SCH ×2 (16:49→21:28)
[2023-05-05] MEDS: PIPERACILLIN SODIUM/TAZOBACTAM 3.375 GM in DEXTROSE 5% IN WATER 50 ML IV SCH (17:34)
[2023-05-05] MEDS ORDERED: MECLIZINE 25 MG TABLET PO PRN (20:59)
[2023-05-05] MEDS: GABAPENTIN 300 MG CAPSULE PO SCH (21:27)
[2023-05-05] MEDS: buPROPion 100 MG TABLET PO SCH (21:28)
[2023-05-05] MEDS: HEPARIN 5,000 UNIT/ML VIAL SQ SCH (21:28)
[2023-05-05] MEDS: DOCUSATE SODIUM 100 MG CAPSULE PO SCH (21:28)
[2023-05-05] MEDS: HYDROCODONE/APAP 7.5/325MG TABLET PO PRN (21:40)
[2023-05-06] MEDS: PIPERACILLIN SODIUM/TAZOBACTAM 3.375 GM in DEXTROSE 5% IN WATER 50 ML IV SCH ×4 (00:47→18:27)
[2023-05-06] MEDS: morphine 4 MG/ML VIAL IV PRN ×3 (04:16→18:33)
[2023-05-06] MEDS: HYDROCODONE/APAP 7.5/325MG TABLET PO PRN (04:17)
[2023-05-06] MEDS: 0.9 % SODIUM CHLORIDE 10 ML SYRINGE IV SCH ×3 (04:54→20:17)
[2023-05-06 06:54] LABS: Basophils # (Auto) 0.03 K/mcL (0.00-0.30); Basophils % (Auto) 0.4 % (0.0-2.0); Eosinophils # (Auto) 0.32 K/mcL (0.00-0.70); Eosinophils % (Auto) 4.3 % (0.0-7.0); Hemoglobin 13.6 g/dL (13.7-17.5); Lymphocytes % (Auto) 16.2 % (15.5-49.0); Mean Cell Volume 88.9 fL (80.0-100.0); Mean Corpuscular HGB Conc 30.9 g/dL (31.0-36.0); Mean Platelet Volume 11.7 fL (8.8-12.5); Monocytes # (Auto) 0.67 K/mcL (0.10-0.90); Monocytes % (Auto) 9.1 % (1.0-12.0); Neutrophils % (Auto) 69.7 % (38.0-78.0); Platelet Count 249 K/mcL (140-440); RBC 4.95 M/mcL (4.63-6.08); WBC 7.4 K/mcL (4.5-11.0)
[2023-05-06 07:01] LABS: ALT/SGPT 9 U/L (<40); AST/SGOT 10 U/L (<40); Alkaline Phosphatase 74 U/L (39-117); Bilirubin,Direct < 0.2 mg/dL (0-0.3); Bilirubin,Total 0.6 mg/dL (0.1-1.0); Blood Urea Nitrogen 25 mg/dL (8-23); Calcium 8.5 mg/dL (8.6-10.4); Carbon Dioxide 24 mmol/L (22-30); Chloride 105 mmol/L (96-108); Globulin 3.1 gm/dL (2.2-3.7); Glomerular Filtration Rate 54; Glucose 88 mg/dL (70-105); Lactate Dehydrogenase 127 U/L (135-225); Phosphorous 3.4 mg/dL (2.5-4.5); Triglycerides 124 mg/dL (<150); Uric Acid 2.7 mg/dL (2.5-8.0)
--- NOTE | 2023-05-06 08:24 | Internal Med Progress Note ---
SUBJECTIVE Subjective Patient information: Note initiated : 05/06/23 at 8:24 am Service Date, if different from initiated Date: [] Patient: Souleymane Naik 72 y/o M admitted on 05/05/23. Chief Complaint: [] Interval history: History of present illness: Mr. Naik is a 72 year old M Presents the ED with several complaints. Patient has had after falling several days ago after tripping, he did not lose consciousness but did hit his head. He did have some scalp bleeding afterwards which is stopped. He today decided he was worried about a skull flap fracture and so he came to the ED. he also developed a petechial rash of his legs and he said he did not notice it until he after he fell. Patient denies any recent medications and actually said he is has not taken his medications for a week or so. Patient denies any headache had a little bit of nausea earlier but no vomiting. No chest pain shortness of breath stomach pain. He also complains of a right great toe infection which she is been dealing with for some time and could not give me a timeframe of when he felt he was last normal. He used to be a patient of Dr. Granados'trav but did see Dr. Wilder at the beginning of March for a toe infection and was given Keflex. In the ED his BUN/creatinine was mildly elevated above baseline. X-ray of the foot showed osteomyelitis of the great toe. Patient was started on IV antibiotics and wound cultures were obtained in the ED. Dr. Jerez was contacted who will likely amputate the toe in the OR shortly. 05/06 Patient had great toe amputation last night. Patient slept okay and feeling fine this morning. Status post IV fluids for acute kidney injury. Discussed with him the need to stop cocaine use given his ischemic toe. Review of Systems: Pertinent positives as above. Denies headache/fever/chills/vomiting/chest or abdominal pain/cough/dyspnea/diarrhea. PHYSICAL EXAM General: Alert, Awake, No acute Distress Eyes/N/T: EOMI, no scleral icterus, Head/Neck: neck supple, full ROM, CV: RRR, No murmurs, Pulm: Clear b/l, no wheezing/rhonchi/rales, no respiratory distress Abd: soft, nontender, +BS x4 Ext: no clubbing/cyanosis/edema to LE, nontender, Right foot in dressings. b/l LE petechial rash improving Neuro: Alert, no focal deficits, moves all extremities, , decreased sensations b/l lower ext Psychiatric: Skin: warm/dry, normal color Constitutional Vitals: Vital Signs Temp Pulse Resp BP Pulse Ox O2 Del Method O2 Flow Rate 97.5 F 70 16 110/64 98 Room Air 0 05/06/23 01:00 05/06/23 01:00 05/06/23 04:20 05/06/23 01:00 05/06/23 01:00 05/06/23 01:00 05/05/23 15:21 Period Temp Pulse Resp BP Sys/Concepcion Pulse Ox O2 Del Method O2 Flow Rate Last 24 Hr 97.3 F-98.7 F 51-86 11-20 90-154/49-98 93-99 Room Air-Room Air 0-0 Intake and Output 05/05/23 05/06/23 05/06/23 19:59 03:59 11:59 Intake Total 2100 2 240 Output Total 310 300 Balance 1790 2 -60 Weight 90.718 kg 89.494 kg Intake & Output: Intake & Output 05/05/23 05/06/23 05/06/23 19:59 03:59 11:59 Intake Total 2100 2 240 Output Total 310 300 Balance 1790 2 -60 Weight 90.718 kg 89.494 kg Intake: IV 1450 2 Sodium Chloride 0.9% 1,000 ml @ 1000 Wide Open IV BOLUS ONE Rx#: [id number] Zosyn 3.375 gm In Dextrose 5% 100 2 in Water 50 ml @ 100 mls/hr IV Q6H YARELIS Rx#:[id number] Vancomycin 1,000 mg In Sodium 250 Chloride 0.9% 250 ml @ 250 mls/ hr IV ONCE YARELIS Rx#:[id number] Oral 200 240 IV - Manual Only 450 Output: Void Amount 300 300 Estimated Blood Loss 10 Other: Meal Dinner Percent of Meal Consumed 50% Feeding Ability Independent Urine Appearance Clear Clear Clear Urine Color Dark Yellow Yellow Yellow Urine Odor Normal Normal Normal OBJ DATA Labs 05/06/23 05:38 05/06/23 05:38 Labs: Abnormal Lab Results 05/06/23 05/06/23 05/05/23 05:38 05:38 13:43 Hgb 13.6 L MCHC 30.9 L RDW 15.0 H Lymph # (Auto) 1.20 L POC BUN BUN 25 H Creatinine 1.3 H POC Creatinine Calcium 8.5 L Lactate Dehydrogenase 127 L Albumin 3.0 L Urine Cocaine Screen Suspect positive A Hepatitis C Antibody 05/05/23 05/05/23 05/05/23 10:11 10:10 10:10 Hgb MCHC RDW 15.0 H Lymph # (Auto) POC BUN 33 H BUN Creatinine POC Creatinine 1.6 H Calcium Lactate Dehydrogenase Albumin Urine Cocaine Screen Hepatitis C Antibody See comment A Meds: Medications Acetaminophen (Acetaminophen 325 Mg Tablet) 650 mg PO Q6HP PRN; Protocol PRN Reason: Per Pain Protocol/Fever > 101 Hydrocodone Bitart/Acetaminophen (Hydrocodone/Apap 7.5/325mg Tablet) 1 - 2 tab PO Q4HP PRN; Protocol PRN Reason: Per Pain Protocol Last Admin: 05/06/23 04:17 Dose: 1 tab Albuterol/Ipratropium (Ipratropium/Albuterol 3 Ml Ampul.Neb) 3 ml NEB Q4HP PRN PRN Reason: Shortness Of Breath Amlodipine Besylate (Amlodipine 5 Mg Tablet) 5 mg PO DAILY [facility] Atorvastatin Calcium (Atorvastatin 20 Mg Tablet) 20 mg PO QDAY [facility] Bupropion HCl (Bupropion 100 Mg Tablet) 100 mg PO BID [facility] Last Admin: 05/05/23 21:28 Dose: 100 mg Docusate Sodium (Docusate Sodium 100 Mg Capsule) 100 mg PO BID [facility] Last Admin: 05/05/23 21:28 Dose: 100 mg Gabapentin (Gabapentin 300 Mg Capsule) 300 mg PO QHS [facility] Last Admin: 05/05/23 21:27 Dose: 300 mg Heparin Sodium (Porcine) (Heparin 5,000 Unit/Ml Vial) 5,000 unit SQ Q12 [facility] Last Admin: 05/05/23 21:28 Dose: 5,000 unit Potassium Chloride 40 meq/ (Dextrose) 520 mls @ 130 mls/hr IV UD PRN PRN Reason: Potassium < 3 Magnesium Sulfate (Magnesium Sulfate) 2 gm in 50 mls @ 50 mls/hr IV UD PRN PRN Reason: Magnesium </= 1.6 Piperacillin Sod/Tazobactam (Sod 3.375 gm/ Dextrose) 50 mls @ 100 mls/hr IV Q6H [facility]; Protocol Last Admin: 05/06/23 05:10 Dose: 100 mls/hr Meclizine HCl (Meclizine 25 Mg Tablet) 25 mg PO TIDP PRN PRN Reason: Vertigo Morphine Sulfate (Morphine 4 Mg/Ml Vial) 2 - 6 mg IV Q1HP PRN; Protocol PRN Reason: Per Pain Protocol Last Admin: 05/06/23 04:16 Dose: 4 mg Ondansetron HCl (Ondansetron 4 Mg/2 Ml Vial) 4 mg IV Q4HP PRN PRN Reason: Nausea And Vomiting Umeclidinium [ Incruse Ellipta] 62. 5 Mcg/Actuation 1 dose INH QDAY YARELIS Polyethylene Glycol (Polyethylene Glycol 3350 17 Gm Packet) 17 gm PO DAILYP PRN PRN Reason: Constipation Potassium Chloride (Potassium Chloride 20 Meq Tablet) 40 meq PO UD PRN PRN Reason: Potssium is 3-3.5 Potassium Chloride (Potassium Chloride 20 Meq Tablet) 40 meq PO UD PRN PRN Reason: Potassium < 3 Senna (Sennosides 1 Tablet) 2 tab PO DAILYP PRN PRN Reason: Constipation Sodium Chloride (0.9 % Sodium Chloride 10 Ml Syringe) 10 ml IV Q8 [facility] Last Admin: 05/06/23 04:54 Dose: Not Given Tamsulosin HCl (Tamsulosin 0.4 Mg Capsule) 0.8 mg PO QDAY [facility] A/P Narrative A/P Narrative: A: *Right great toe gangrene with osteomyelitis and cellulitis: s/p amputation (05/05) -probably vascular compromise from cocaine use *b/l LE petechial rash (pigmented purpuric dermatoses, PPD): etiology unknown but likely 2/2 cocaine use -2/2 venous insufficiency vs infection vs other vs likely cocaine use -asymptomatic *NAKUL on CKD III: improved with IVF *COPD(not on home O2): *HTN/HLD: *h/o CVA per imaging: *Cocaine use disorder: UDS positive *Neuropathy: *Depression: *h/o renal stones: *h/o Polycythemia: P: -Zosyn, abx for 10-days, mrsa screen neg -BC/WC pending -Dr. Jerez following -IVF d/c -Monitor renal function/UOP -Monitor replace electrolytes as needed -monitor rash, topical corticosteroids -Continue home Norvasc/statin -pt/ot -CM for placement needs -ppx: heparin Time Spent With Patient Time: Total time spent is greater than 50% in coordination of care (as documented) at patient's floor/unit and/or counseling patient: Subsequent: Total time with patient: 50 - 65 Minutes QUALITY VTE Deep Vein Thrombosis/Pulmonary Embolism Present on Admission: No
[2023-05-06] MEDS: HEPARIN 5,000 UNIT/ML VIAL SQ SCH ×2 (09:07→20:16)
[2023-05-06] MEDS: TAMSULOSIN 0.4 MG CAPSULE PO SCH (09:07)
[2023-05-06] MEDS: DOCUSATE SODIUM 100 MG CAPSULE PO SCH ×2 (09:07→20:16)
[2023-05-06] MEDS: ATORVASTATIN 20 MG TABLET PO SCH (09:07)
[2023-05-06] MEDS: amLODIPine 5 MG TABLET PO SCH (09:07)
[2023-05-06] MEDS: Umeclidinium [Incruse Ellipta] 62.5 mcg/actuation INH SCH (10:06)
[2023-05-06] MEDS: buPROPion 100 MG TABLET PO SCH ×2 (10:06→20:16)
[2023-05-06] MEDS: TRIAMCINOLONE CREAM 0.1% 15G 1 DOSE TUBE TOPICAL SCH ×2 (11:22→20:16)
--- NOTE | 2023-05-06 11:57 | General Surgery Progress Note ---
SUBJECTIVE Subjective Patient information: Note initiated : 05/06/23 at 11:55 am Service Date, if different from initiated Date: [] Patient: Souleymane Naik 72 y/o M admitted on 05/05/23. Chief Complaint: [] Principal diagnosis: cellulitis Right great toe Interval history: post amputation great toe Right Constitutional Vitals: Vital Signs Temp Pulse Resp BP Pulse Ox O2 Del Method O2 Flow Rate 97 F 72 18 123/73 97 Room Air 0 05/06/23 09:00 05/06/23 09:00 05/06/23 09:00 05/06/23 09:00 05/06/23 09:00 05/06/23 09:00 05/05/23 15:21 Period Temp Pulse Resp BP Sys/Concepcion Pulse Ox O2 Del Method O2 Flow Rate Last 24 Hr 97 F-98.7 F 51-76 11-20 90-154/49-98 93-99 Room Air-Room Air 0-0 Intake and Output 05/05/23 05/06/23 05/06/23 19:59 03:59 11:59 Intake Total 2100 2 1830 Output Total 310 625 Balance 1790 2 1205 Weight 200 lb 197 lb 4.8 oz Intake & Output: Intake & Output 05/05/23 05/06/23 05/06/23 19:59 03:59 11:59 Intake Total 2100 2 1830 Output Total 310 625 Balance 1790 2 1205 Weight 200 lb 197 lb 4.8 oz Intake: IV 1450 2 1050 Sodium Chloride 0.9% 1,000 ml @ 1000 1000 100 mls/hr IV .Q10H YARELIS Rx#: [id number] Zosyn 3.375 gm In Dextrose 5% 100 2 50 in Water 50 ml @ 100 mls/hr IV Q6H YARELIS Rx#:[id number] Vancomycin 1,000 mg In Sodium 250 Chloride 0.9% 250 ml @ 250 mls/ hr IV ONCE YARELIS Rx#:[id number] Oral 200 480 GI Tube Flush 300 IV - Manual Only 450 Output: Void Amount 300 625 Estimated Blood Loss 10 Other: Meal Dinner Breakfast Percent of Meal Consumed 50% 100% Feeding Ability Independent Independent Urine Appearance Clear Clear Clear Urine Color Dark Yellow Yellow Yellow Urine Odor Normal Normal Normal Extremities Exam Additional comments: dressing clean and dry A/P Assessment and plan (1) Acute osteomyelitis of toe of right foot: Assessment and plan: post amputation Plan: continue antibiotics Status: Acute Time Spent With Patient Time: Total time spent is greater than 50% in coordination of care (as documented) at patient's floor/unit and/or counseling patient:
[2023-05-06] MEDS: GABAPENTIN 300 MG CAPSULE PO SCH (20:16)
[2023-05-07] MEDS: morphine 4 MG/ML VIAL IV PRN ×4 (01:20→20:48)
[2023-05-07] MEDS: PIPERACILLIN SODIUM/TAZOBACTAM 3.375 GM in DEXTROSE 5% IN WATER 50 ML IV SCH ×5 (01:21→22:50)
[2023-05-07] MEDS: 0.9 % SODIUM CHLORIDE 10 ML SYRINGE IV SCH ×3 (05:41→22:51)
--- NOTE | 2023-05-07 08:29 | Internal Med Progress Note ---
SUBJECTIVE Subjective Patient information: Note initiated : 05/07/23 at 8:27 am Service Date, if different from initiated Date: [] Patient: Souleymane Naik 72 y/o M admitted on 05/05/23. Chief Complaint: [] Principal diagnosis: cellulitis Right great toe Interval history: History of present illness: Mr. Naik is a 72 year old M Presents the ED with several complaints. Patient has had after falling several days ago after tripping, he did not lose consciousness but did hit his head. He did have some scalp bleeding afterwards which is stopped. He today decided he was worried about a skull flap fracture and so he came to the ED. he also developed a petechial rash of his legs and he said he did not notice it until he after he fell. Patient denies any recent medications and actually said he is has not taken his medications for a week or so. Patient denies any headache had a little bit of nausea earlier but no vomiting. No chest pain shortness of breath stomach pain. He also complains of a right great toe infection which she is been dealing with for some time and could not give me a timeframe of when he felt he was last normal. He used to be a patient of Dr. Granados's but did see Dr. Wilder at the the [facility] of March for a toe infection and was given Keflex. In the ED his BUN/creatinine was mildly elevated above baseline. X-ray of the foot showed osteomyelitis of the great toe. Patient was started on IV antibiotics and wound cultures were obtained in the ED. Dr. Jerez was contacted who will likely amputate the toe in the OR shortly. 05/06 Patient had great toe amputation last night. Patient slept okay and feeling fine this morning. Status post IV fluids for acute kidney injury. Discussed with him the need to stop cocaine use given his ischemic toe. 05/07 No new pains or complaints. patient feels unstable on feet. No overnight event or new complaints. Review of Systems: Pertinent positives as above. Denies headache/fever/chills/vomiting/chest or abdominal pain/cough/dyspnea/diarrhea. PHYSICAL EXAM General: Alert, Awake, No acute Distress Eyes/N/T: EOMI, no scleral icterus, Head/Neck: neck supple, full ROM, CV: RRR, No murmurs, Pulm: Clear b/l, no wheezing/rhonchi/rales, no respiratory distress Abd: soft, nontender, +BS x4 Ext: no clubbing/cyanosis, b/l LE 1+ edma R>L, nontender, Right foot in dressings. b/l LE petechial rash improving Neuro: Alert, no focal deficits, moves all extremities, , decreased sensations b/l lower ext Psychiatric: Skin: warm/dry, normal color Constitutional Vitals: Vital Signs Temp Pulse Resp BP Pulse Ox O2 Del Method O2 Flow Rate 98.1 F 60 18 131/73 98 Room Air 0 05/07/23 08:00 05/07/23 08:00 05/07/23 08:00 05/07/23 08:00 05/07/23 08:00 05/07/23 08:00 05/05/23 15:21 Period Temp Pulse Resp BP Sys/Concepcion Pulse Ox O2 Del Method O2 Flow Rate Last 24 Hr 97 F-98.8 F 60-81 14-18 109-131/65-74 93-98 Room Air-Room Air Intake and Output 05/06/23 05/07/23 05/07/23 19:59 03:59 11:59 Intake Total 740 50 50 Output Total 1974 575 300 Balance -1235 -525 -250 Weight 92.896 kg Intake & Output: Intake & Output 05/06/23 05/07/23 05/07/23 19:59 03:59 11:59 Intake Total 740 50 50 Output Total 1974 575 300 Balance -1235 -525 -250 Weight 92.896 kg Intake: IV 100 50 50 Zosyn 3.375 gm In Dextrose 5% 100 50 50 in Water 50 ml @ 100 mls/hr IV Q6H [facility] Rx#:[id number] Oral 240 GI Tube Flush 400 Output: Void Amount 1974 575 300 Other: Meal Dinner Percent of Meal Consumed 100% Feeding Ability Independent Urine Appearance Clear Clear Clear Urine Color Dark Yellow Yellow Yellow Urine Odor Normal OBJ DATA Labs 05/06/23 05:38 05/06/23 05:38 Labs: Abnormal Lab Results 05/06/23 05/06/23 05/05/23 05:38 05:38 13:43 Hgb 13.6 L MCHC 30.9 L RDW 15.0 H Lymph # (Auto) 1.20 L POC BUN BUN 25 H Creatinine 1.3 H POC Creatinine Calcium 8.5 L Lactate Dehydrogenase 127 L Albumin 3.0 L Urine Cocaine Screen Suspect positive A Hepatitis C Antibody 05/05/23 05/05/23 05/05/23 10:11 10:10 10:10 Hgb MCHC RDW 15.0 H Lymph # (Auto) POC BUN 33 H BUN Creatinine POC Creatinine 1.6 H Calcium Lactate Dehydrogenase Albumin Urine Cocaine Screen Hepatitis C Antibody See comment A Meds: Medications Acetaminophen (Acetaminophen 325 Mg Tablet) 650 mg PO Q6HP PRN; Protocol PRN Reason: Per Pain Protocol/Fever > 101 Hydrocodone Bitart/Acetaminophen (Hydrocodone/Apap 7.5/325mg Tablet) 1 - 2 tab PO Q4HP PRN; Protocol PRN Reason: Per Pain Protocol Last Admin: 05/06/23 04:17 Dose: 1 tab Albuterol/Ipratropium (Ipratropium/Albuterol 3 Ml Ampul.Neb) 3 ml NEB Q4HP PRN PRN Reason: Shortness Of Breath Amlodipine Besylate (Amlodipine 5 Mg Tablet) 5 mg PO DAILY [facility] Last Admin: 05/06/23 09:07 Dose: 5 mg Atorvastatin Calcium (Atorvastatin 20 Mg Tablet) 20 mg PO QDAY [facility] Last Admin: 05/06/23 09:07 Dose: 20 mg Bupropion HCl (Bupropion 100 Mg Tablet) 100 mg PO BID [facility] Last Admin: 05/06/23 20:16 Dose: 100 mg Docusate Sodium (Docusate Sodium 100 Mg Capsule) 100 mg PO BID [facility] Last Admin: 05/06/23 20:16 Dose: 100 mg Gabapentin (Gabapentin 300 Mg Capsule) 300 mg PO QHS [facility] Last Admin: 05/06/23 20:16 Dose: 300 mg Heparin Sodium (Porcine) (Heparin 5,000 Unit/Ml Vial) 5,000 unit SQ Q12 [facility] Last Admin: 05/06/23 20:16 Dose: 5,000 unit Potassium Chloride 40 meq/ (Dextrose) 520 mls @ 130 mls/hr IV UD PRN PRN Reason: Potassium < 3 Magnesium Sulfate (Magnesium Sulfate) 2 gm in 50 mls @ 50 mls/hr IV UD PRN PRN Reason: Magnesium </= 1.6 Piperacillin Sod/Tazobactam (Sod 3.375 gm/ Dextrose) 50 mls @ 100 mls/hr IV Q6H [facility]; Protocol Last Infusion: 05/07/23 07:17 Dose: Infused Meclizine HCl (Meclizine 25 Mg Tablet) 25 mg PO TIDP PRN PRN Reason: Vertigo Morphine Sulfate (Morphine 4 Mg/Ml Vial) 2 - 6 mg IV Q1HP PRN; Protocol PRN Reason: Per Pain Protocol Last Admin: 05/07/23 01:20 Dose: 4 mg Ondansetron HCl (Ondansetron 4 Mg/2 Ml Vial) 4 mg IV Q4HP PRN PRN Reason: Nausea And Vomiting Umeclidinium [ Incruse Ellipta] 62. 5 Mcg/Actuation 1 dose INH QDAY [facility] Last Admin: 05/06/23 10:06 Dose: 1 dose Polyethylene Glycol (Polyethylene Glycol 3350 17 Gm Packet) 17 gm PO DAILYP PRN PRN Reason: Constipation Potassium Chloride (Potassium Chloride 20 Meq Tablet) 40 meq PO UD PRN PRN Reason: Potssium is 3-3.5 Potassium Chloride (Potassium Chloride 20 Meq Tablet) 40 meq PO UD PRN PRN Reason: Potassium < 3 Senna (Sennosides 1 Tablet) 2 tab PO DAILYP PRN PRN Reason: Constipation Sodium Chloride (0.9 % Sodium Chloride 10 Ml Syringe) 10 ml IV Q8 [facility] Last Admin: 05/07/23 05:41 Dose: 10 ml Tamsulosin HCl (Tamsulosin 0.4 Mg Capsule) 0.8 mg PO QDAY [facility] Last Admin: 05/06/23 09:07 Dose: 0.8 mg Triamcinolone Acetonide (Triamcinolone Cream 0.1% 15g 1 Dose Tube) 1 dose TOPICAL BID [facility] Last Admin: 05/06/23 20:16 Dose: 1 dose A/P Narrative A/P Narrative: A: *Right great toe gangrene with osteomyelitis and cellulitis: s/p amputation (05/05) -probably vascular compromise from cocaine use *b/l LE petechial rash (pigmented purpuric dermatoses, PPD): etiology unknown but likely 2/2 cocaine use. Improving -2/2 venous insufficiency vs infection vs other vs likely cocaine use -asymptomatic *NAKUL on CKD III: improved with IVF *COPD(not on home O2): *HTN/HLD: *h/o CVA per imaging: *Cocaine use disorder: counseled on quitting and f/u with Dr. Griffith *Neuropathy: *Depression: *h/o renal stones: *h/o Polycythemia: P: -Zosyn pending BC/WC -abx for 10-days, mrsa screen neg -Dr. Jerez following -Monitor renal function/UOP -Monitor replace electrolytes as needed -monitor rash, topical corticosteroids -Continue home Norvasc/statin -pt/ot -CM for placement needs -ppx: heparin Time Spent With Patient Time: Total time spent is greater than 50% in coordination of care (as documented) at patient's floor/unit and/or counseling patient: Subsequent: Total time with patient: 35 - 49 minutes QUALITY VTE Deep Vein Thrombosis/Pulmonary Embolism Present on Admission: No
[2023-05-07] MEDS: HEPARIN 5,000 UNIT/ML VIAL SQ SCH ×2 (08:35→22:50)
[2023-05-07] MEDS: TRIAMCINOLONE CREAM 0.1% 15G 1 DOSE TUBE TOPICAL SCH ×2 (08:35→22:50)
[2023-05-07] MEDS: Umeclidinium [Incruse Ellipta] 62.5 mcg/actuation INH SCH (08:35)
[2023-05-07] MEDS: amLODIPine 5 MG TABLET PO SCH (08:36)
[2023-05-07] MEDS: TAMSULOSIN 0.4 MG CAPSULE PO SCH (08:36)
[2023-05-07] MEDS: DOCUSATE SODIUM 100 MG CAPSULE PO SCH ×2 (08:36→22:50)
[2023-05-07] MEDS: buPROPion 100 MG TABLET PO SCH ×2 (08:36→22:50)
[2023-05-07] MEDS: ATORVASTATIN 20 MG TABLET PO SCH (08:36)
--- NOTE | 2023-05-07 10:56 | Discharge Summary ---
Discharge Provider Provider IMPORTANT FOLLOW-UP INFORMATION FOR PCP: Patient information: Note initiated : 05/07/23 at 10:55 am Service Date, if different from initiated Date: [] Patient: Souleymane Naik 72 y/o M admitted on 05/05/23. Chief Complaint: [] Date of admission: 05/05/23 15:25 Discharge date: 05/09/23 Primary care physician: Jose Moreno MD Consults: 05/05/23 Consult to Physician [CONS] Stat Comment: Consulting Provider: Jayden Jerez Reason For Exam: Physician to Consult Consult to Physician [CONS] Stat Comment: Consulting Provider: Parker Washburn Reason For Exam: Physician to Consult COURSE Hospital Course Hospital course: History of present illness: Mr. Naik is a 72 year old M Presents the ED with several complaints. Patient has had after falling several days ago after tripping, he did not lose consciousness but did hit his head. He did have some scalp bleeding afterwards which is stopped. He today decided he was worried about a skull flap fracture and so he came to the ED. he also developed a petechial rash of his legs and he said he did not notice it until he after he fell. Patient denies any recent medications and actually said he is has not taken his medications for a week or so. Patient denies any headache had a little bit of nausea earlier but no vomiting. No chest pain shortness of breath stomach pain. He also complains of a right great toe infection which she is been dealing with for some time and could not give me a timeframe of when he felt he was last normal. He used to be a patient of Dr. Granados'trav but did see Dr. Wilder at the beginning of March for a toe infection and was given Keflex. In the ED his BUN/creatinine was mildly elevated above baseline. X-ray of the foot showed osteomyelitis of the great toe. Patient was started on IV antibiotics and wound cultures were obtained in the ED. Dr. Jerez was contacted who will likely amputate the toe in the OR shortly. 05/06 Patient had great toe amputation last night. Patient slept okay and feeling fine this morning. Status post IV fluids for acute kidney injury. Discussed with him the need to stop cocaine use given his ischemic toe. 05/07 No new pains or complaints. patient feels unstable on feet. No overnight event or new complaints. 05/08 No overnight events. No new complaints. Wound cultures from the growing MSSA Morganella Morgagni Klebsiella Streptococcus mitis and Enterococcus. Working with PT and case management for placement. DC Vanco. On Zosyn. 05/09 No overnight event or new complaints. Enterococcus sensitivities back as well showing sensitivity to Levaquin. Patient stable for discharge and will discharge on Levaquin. A: *Right great toe gangrene with osteomyelitis and cellulitis: s/p amputation (05/05) -probably vascular compromise from cocaine use *b/l LE petechial rash (pigmented purpuric dermatoses, PPD): etiology unknown but likely 2/2 cocaine use. Improving -2/2 venous insufficiency vs infection vs other vs likely cocaine use *NAKUL on CKD III: improved with IVF *COPD(not on home O2): *HTN/HLD: *h/o CVA per imaging: *Cocaine use disorder: counseled on quitting and f/u with Dr. Griffith *Neuropathy: *Depression: *h/o renal stones: *h/o Polycythemia: P: -Abx for 10-days -Dr. Jerez follow up Discharge diagnosis: Right great toe osteomyelitis and cellulitis with amputation Secondary discharge diagnosis: bilateral lower extremity petechial rash cocaine use acute on chronic kidney disease COPD hypertension history of stroke substance abuse with cocaine neuropathy depression Time Spent with Patient Time attestation: Total time spent providing and/or coordinating discharge services: Time spent: Greater than 30 minutes EXAM Constitutional Vitals: Temp Pulse Resp BP Pulse Ox O2 Del Method O2 Flow Rate 98.1 F 60 18 131/73 98 Room Air 0 05/07/23 08:00 05/07/23 08:00 05/07/23 08:00 05/07/23 08:00 05/07/23 08:00 05/07/23 08:00 05/05/23 15:21 Discharge Data Data Completed and Pending Labs on day of discharge: Preliminary micro results at discharge 05/05/23 15:24 Anaerobic Culture - Preliminary Toe - Not Given Discharge Plan Patient/Caregiver Discharge Instructions Activity: increase activity as tolerated Diet: Regular Diet Activity Restrictions/Additional Instructions: Activity: increase activity as tolerated Diet: Regular Diet Activity Restrictions/Additional Instructions: Daily gauze dressing changes until follow-up appointment. This discharge packet is provided to you to help keep you informed about your care. We want to ensure you get everything you need when you go home. You will also be receiving a call from us in a few days to follow up with you and see how you are doing since your discharge. This gives us a chance to listen to any concerns you maybe experiencing since you were discharged or any additional needs you may have, as well as providing us feedback on your care experience. We strive to always provide excellent care and thank you for your feedback and for choosing [facility]. Prescriptions: New hydrocodone-acetaminophen 7.5-325 mg Tablet 1 - 2 tab PO Q4HP PRN (Reason: Per Pain Protocol) Qty: 50 0RF levofloxacin 750 mg tablet 750 mg PO Q48 Qty: 3 0RF Rx Instructions: start on 05/11/2023 Continued cholecalciferol (vitamin D3) 25 mcg (1,000 unit) capsule 25 mcg PO QDAY Qty: 90 3RF bupropion HCl 100 mg tablet 100 mg PO BID Qty: 180 1RF Patient Comments: PATIENT HAS STOPPED TAKING THIS tamsulosin [Flomax] 0.4 mg capsule 0.8 mg PO QDAY Qty: 180 3RF meclizine 25 mg tablet 25 mg PO TIDP PRN (Reason: Vertigo) Qty: 30 0RF Incruse Ellipta 62.5 mcg/actuation blister with device 1 inh inhalation QDAY Qty: 30 5RF amlodipine 5 mg tablet 5 mg PO DAILY Qty: 90 3RF aspirin 325 mg tablet 325 mg PO QDAY Qty: 90 3RF gabapentin 300 mg capsule 300 mg PO QHS Qty: 90 3RF Rx Instructions: and BID PRN (DME) blood pressure test kit-large Kit See Rx Instructions .Route Qty: 1 0RF Rx Instructions: Monitor daily atorvastatin 20 mg tablet 20 mg PO QDAY Qty: 90 3RF ondansetron 4 mg tablet,disintegrating 4 mg Q4HP PRN (Reason: nausea/vomiting) albuterol sulfate [Ventolin HFA] 90 mcg/actuation HFA aerosol inhaler 1 puff INHALATION Q4HP PRN (Reason: wheezing) Other Ambulatory Orders: OT Discharge Order (Routine) Location: None Selected Ordered By: Parker Washburn Physical Therapy at Discharge - General (Routine) Location: None Selected Ordered By: Parker Washburn Follow Up Plan Follow up with: Jayden Jerez MD [Physician] - (Contact Dr. Jerez's office at [phone] to schedule a post discharge follow up to be seen at their direction.) Jose Moreno MD [Primary Care Provider] - (Your primary care physician will contact you to schedule your post discharge follow up visit. If you have not heard from them by , please contact them at [phone] to schedule to be seen within 10-14 days.) Patient Disposition: Xfer SNF Prognosis: Fair Rehab Potential: Fair I certify that the patient requires SNF services: Yes Overall status at discharge: patient is progressing back to baseline Discharge Orders: Discharge Order (Routine); Ordered 05/08/23 Ordered By: Brennon Christie QUALITY VTE Deep Vein Thrombosis/Pulmonary Embolism Present on Admission: No
--- NOTE | 2023-05-07 12:02 | General Surgery Progress Note ---
SUBJECTIVE Subjective Patient information: Note initiated : 05/07/23 at 12:00 pm Service Date, if different from initiated Date: [] Patient: Souleymane Naik 72 y/o M admitted on 05/05/23. Chief Complaint: [] Principal diagnosis: cellulitis Right great toe Interval history: no new complaints, status post amp Constitutional Vitals: Vital Signs Temp Pulse Resp BP Pulse Ox O2 Del Method O2 Flow Rate 97.9 F 78 16 112/68 95 Room Air 0 05/07/23 11:38 05/07/23 11:38 05/07/23 11:38 05/07/23 11:38 05/07/23 11:38 05/07/23 11:38 05/05/23 15:21 Period Temp Pulse Resp BP Sys/Concepcion Pulse Ox O2 Del Method O2 Flow Rate Last 24 Hr 97.7 F-98.8 F 60-81 14-18 109-131/65-74 93-98 Room Air-Room Air Intake and Output 05/07/23 05/07/23 05/07/23 03:59 11:59 19:59 Intake Total 50 50 Output Total 575 600 Balance -525 -550 Weight 204 lb 12.8 oz Intake & Output: Intake & Output 05/07/23 05/07/23 05/07/23 03:59 11:59 19:59 Intake Total 50 50 Output Total 575 600 Balance -525 -550 Weight 204 lb 12.8 oz Intake: IV 50 50 Zosyn 3.375 gm In Dextrose 5% 50 50 in Water 50 ml @ 100 mls/hr IV Q6H [facility] Rx#:[id number] Output: Void Amount 575 600 Other: Urine Appearance Clear Clear Urine Color Yellow Yellow Urine Odor Normal Extremities Exam Additional comments: continued cellulitit, would clean and dry A/P Assessment and plan (1) Acute osteomyelitis of toe of right foot: Plan: continue antiobiotics Status: Acute Plan orestes Time Spent With Patient Time: Total time spent is greater than 50% in coordination of care (as documented) at patient's floor/unit and/or counseling patient:
[2023-05-07] MEDS ORDERED: VANCOMYCIN PER PHARMACY IV SCH (13:42)
[2023-05-07] MEDS ORDERED: VANCOMYCIN 1,500 MG in 0.9 % SODIUM CHLORIDE 500 ML IV SCH (15:00)
[2023-05-07] MEDS: GABAPENTIN 300 MG CAPSULE PO SCH (22:50)
[2023-05-08] MEDS: HYDROCODONE/APAP 7.5/325MG TABLET PO PRN ×2 (04:17→11:00)
[2023-05-08] MEDS: 0.9 % SODIUM CHLORIDE 10 ML SYRINGE IV SCH ×3 (04:18→22:20)
[2023-05-08] MEDS: PIPERACILLIN SODIUM/TAZOBACTAM 3.375 GM in DEXTROSE 5% IN WATER 50 ML IV SCH ×3 (05:57→18:35)
--- NOTE | 2023-05-08 07:14 | Orthopedic Progress Note ---
SUBJECTIVE Subjective Patient information: Note initiated : 05/08/23 at 7:12 am Service Date, if different from initiated Date: [] Patient: Souleymane Naik 72 y/o M admitted on 05/05/23. Chief Complaint: [S/p right great toe amputation] Patient is doing well. He does have some postoperative pain but otherwise has no orthopedic complaints. Principal diagnosis: cellulitis Right great toe Constitutional Vitals: Vital Signs Temp Pulse Resp BP Pulse Ox O2 Del Method O2 Flow Rate 97.0 F 65 20 111/64 93 Room Air 0 05/08/23 04:00 05/08/23 04:00 05/08/23 04:00 05/08/23 04:00 05/08/23 04:00 05/08/23 04:00 05/05/23 15:21 Period Temp Pulse Resp BP Sys/Concepcion Pulse Ox O2 Del Method O2 Flow Rate Last 24 Hr 97.0 F-98.8 F 60-89 16-20 99-137/64-77 93-98 Room Air-Room Air Intake and Output 05/07/23 05/08/23 05/08/23 19:59 03:59 11:59 Intake Total 1210 100 410 Output Total 375 500 325 Balance 835 -400 85 Weight 204 lb 11.2 oz Intake & Output: Intake & Output 05/07/23 05/08/23 05/08/23 19:59 03:59 11:59 Intake Total 1210 100 410 Output Total 375 500 325 Balance 835 -400 85 Weight 204 lb 11.2 oz Intake: IV 550 100 50 Zosyn 3.375 gm In Dextrose 5% 50 100 50 in Water 50 ml @ 100 mls/hr IV Q6H [facility] Rx#:[id number] Vancomycin 1,500 mg In Sodium 500 Chloride 0.9% 500 ml @ 333.3 mls/hr IV Q24H [facility] Rx#: [id number] Oral 660 360 Output: Void Amount 375 500 325 Other: Meal Lunch Percent of Meal Consumed 100% Feeding Ability Independent Urine Appearance Clear Clear Clear Urine Color Yellow Yellow Yellow Urine Odor Normal Normal General appearance: no acute distress Extremities Exam Additional comments: Right foot dressing is clean, dry, and intact. OBJ DATA Labs 05/06/23 05:38 05/06/23 05:38 Labs: Abnormal Lab Results 05/06/23 05/06/23 05/05/23 05:38 05:38 13:43 Hgb 13.6 L MCHC 30.9 L RDW 15.0 H Lymph # (Auto) 1.20 L POC BUN BUN 25 H Creatinine 1.3 H POC Creatinine Calcium 8.5 L Lactate Dehydrogenase 127 L Albumin 3.0 L Urine Cocaine Screen Suspect positive A Hepatitis C Antibody 05/05/23 05/05/23 05/05/23 10:11 10:10 10:10 Hgb MCHC RDW 15.0 H Lymph # (Auto) POC BUN 33 H BUN Creatinine POC Creatinine 1.6 H Calcium Lactate Dehydrogenase Albumin Urine Cocaine Screen Hepatitis C Antibody See comment A Meds: Medications Acetaminophen (Acetaminophen 325 Mg Tablet) 650 mg PO Q6HP PRN; Protocol PRN Reason: Per Pain Protocol/Fever > 101 Hydrocodone Bitart/Acetaminophen (Hydrocodone/Apap 7.5/325mg Tablet) 1 - 2 tab PO Q4HP PRN; Protocol PRN Reason: Per Pain Protocol Last Admin: 05/08/23 04:17 Dose: 2 tab Albuterol/Ipratropium (Ipratropium/Albuterol 3 Ml Ampul.Neb) 3 ml NEB Q4HP PRN PRN Reason: Shortness Of Breath Amlodipine Besylate (Amlodipine 5 Mg Tablet) 5 mg PO DAILY [facility] Last Admin: 05/07/23 08:36 Dose: 5 mg Atorvastatin Calcium (Atorvastatin 20 Mg Tablet) 20 mg PO QDAY [facility] Last Admin: 05/07/23 08:36 Dose: 20 mg Bupropion HCl (Bupropion 100 Mg Tablet) 100 mg PO BID [facility] Last Admin: 05/07/23 22:50 Dose: 100 mg Docusate Sodium (Docusate Sodium 100 Mg Capsule) 100 mg PO BID [facility] Last Admin: 05/07/23 22:50 Dose: 100 mg Gabapentin (Gabapentin 300 Mg Capsule) 300 mg PO QHS [facility] Last Admin: 05/07/23 22:50 Dose: 300 mg Heparin Sodium (Porcine) (Heparin 5,000 Unit/Ml Vial) 5,000 unit SQ Q12 [facility] Last Admin: 05/07/23 22:50 Dose: 5,000 unit Potassium Chloride 40 meq/ (Dextrose) 520 mls @ 130 mls/hr IV UD PRN PRN Reason: Potassium < 3 Magnesium Sulfate (Magnesium Sulfate) 2 gm in 50 mls @ 50 mls/hr IV UD PRN PRN Reason: Magnesium </= 1.6 Piperacillin Sod/Tazobactam (Sod 3.375 gm/ Dextrose) 50 mls @ 100 mls/hr IV Q6H [facility]; Protocol Last Infusion: 05/08/23 06:46 Dose: Infused Meclizine HCl (Meclizine 25 Mg Tablet) 25 mg PO TIDP PRN PRN Reason: Vertigo Morphine Sulfate (Morphine 4 Mg/Ml Vial) 2 - 6 mg IV Q1HP PRN; Protocol PRN Reason: Per Pain Protocol Last Admin: 05/07/23 20:48 Dose: 6 mg Ondansetron HCl (Ondansetron 4 Mg/2 Ml Vial) 4 mg IV Q4HP PRN PRN Reason: Nausea And Vomiting Umeclidinium [ Incruse Ellipta] 62. 5 Mcg/Actuation 1 dose INH QDAY [facility] Last Admin: 05/07/23 08:35 Dose: 1 dose Polyethylene Glycol (Polyethylene Glycol 3350 17 Gm Packet) 17 gm PO DAILYP PRN PRN Reason: Constipation Potassium Chloride (Potassium Chloride 20 Meq Tablet) 40 meq PO UD PRN PRN Reason: Potssium is 3-3.5 Potassium Chloride (Potassium Chloride 20 Meq Tablet) 40 meq PO UD PRN PRN Reason: Potassium < 3 Senna (Sennosides 1 Tablet) 2 tab PO DAILYP PRN PRN Reason: Constipation Last Admin: 05/07/23 15:24 Dose: 2 tab Sodium Chloride (0.9 % Sodium Chloride 10 Ml Syringe) 10 ml IV Q8 [facility] Last Admin: 05/08/23 04:18 Dose: 10 ml Tamsulosin HCl (Tamsulosin 0.4 Mg Capsule) 0.8 mg PO QDAY [facility] Last Admin: 05/07/23 08:36 Dose: 0.8 mg Triamcinolone Acetonide (Triamcinolone Cream 0.1% 15g 1 Dose Tube) 1 dose TOPICAL BID [facility] Last Admin: 05/07/23 22:50 Dose: 1 dose A/P Assessment and plan (1) Acute osteomyelitis of toe of right foot: Assessment and plan: Discharge to SNF today. Daily dressing changes. F/u with TJ in 2 weeks. Status: Acute Time Spent With Patient Time: Total time spent is greater than 50% in coordination of care (as documented) at patient's floor/unit and/or counseling patient:
--- NOTE | 2023-05-08 07:29 | EKG ---
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
--- NOTE | 2023-05-08 07:50 | Internal Med Progress Note ---
SUBJECTIVE Subjective Patient information: Note initiated : 05/08/23 at 7:47 am Service Date, if different from initiated Date: [] Patient: Souleymane Naik 72 y/o M admitted on 05/05/23. Chief Complaint: [] Principal diagnosis: cellulitis Right great toe Interval history: History of present illness: Mr. Naik is a 72 year old M Presents the ED with several complaints. Patient has had after falling several days ago after tripping, he did not lose consciousness but did hit his head. He did have some scalp bleeding afterwards which is stopped. He today decided he was worried about a skull flap fracture and so he came to the ED. he also developed a petechial rash of his legs and he said he did not notice it until he after he fell. Patient denies any recent medications and actually said he is has not taken his medications for a week or so. Patient denies any headache had a little bit of nausea earlier but no vomiting. No chest pain shortness of breath stomach pain. He also complains of a right great toe infection which she is been dealing with for some time and could not give me a timeframe of when he felt he was last normal. He used to be a patient of Dr. Granados'trav but did see Dr. Wilder at the [facility] of March for a toe infection and was given Keflex. In the ED his BUN/creatinine was mildly elevated above baseline. X-ray of the foot showed osteomyelitis of the great toe. Patient was started on IV antibiotics and wound cultures were obtained in the ED. Dr. Jerez was contacted who will likely amputate the toe in the OR shortly. 05/06 Patient had great toe amputation last night. Patient slept okay and feeling fine this morning. Status post IV fluids for acute kidney injury. Discussed with him the need to stop cocaine use given his ischemic toe. 05/07 No new pains or complaints. patient feels unstable on feet. No overnight event or new complaints. 05/08 No overnight events. No new complaints. Wound cultures from the growing MSSA Morganella Morgagni Klebsiella Streptococcus mitis and Enterococcus. Working with PT and case management for placement. JORGE Contreras. On Zosyn. Review of Systems: Pertinent positives as above. Denies headache/fever/chills/vomiting/chest or abdominal pain/cough/dyspnea/diarrhea. PHYSICAL EXAM General: Alert, Awake, No acute Distress Eyes/N/T: EOMI, no scleral icterus, Head/Neck: neck supple, full ROM, CV: RRR, No murmurs, Pulm: Clear b/l, no wheezing/rhonchi/rales, no respiratory distress Abd: soft, nontender, +BS x4 Ext: no clubbing/cyanosis, b/l LE 1+ edma R>L, nontender, Right foot in dressings. b/l LE petechial rash improving Neuro: Alert, no focal deficits, moves all extremities, , decreased sensations b/l lower ext Psychiatric: Skin: warm/dry, normal color Constitutional Vitals: Vital Signs Temp Pulse Resp BP Pulse Ox O2 Del Method O2 Flow Rate 97.0 F 65 20 111/64 93 Room Air 0 05/08/23 04:00 05/08/23 04:00 05/08/23 04:00 05/08/23 04:00 05/08/23 04:00 05/08/23 04:00 05/05/23 15:21 Period Temp Pulse Resp BP Sys/Concepcion Pulse Ox O2 Del Method O2 Flow Rate Last 24 Hr 97.0 F-98.8 F 60-89 16-20 99-137/64-77 93-98 Room Air-Room Air Intake and Output 05/07/23 05/08/23 05/08/23 19:59 03:59 11:59 Intake Total 1210 100 410 Output Total 375 500 325 Balance 835 -400 85 Weight 92.85 kg Intake & Output: Intake & Output 05/07/23 05/08/23 05/08/23 19:59 03:59 11:59 Intake Total 1210 100 410 Output Total 375 500 325 Balance 835 -400 85 Weight 92.85 kg Intake: IV 550 100 50 Zosyn 3.375 gm In Dextrose 5% 50 100 50 in Water 50 ml @ 100 mls/hr IV Q6H [facility] Rx#:[id number] Vancomycin 1,500 mg In Sodium 500 Chloride 0.9% 500 ml @ 333.3 mls/hr IV Q24H [facility] Rx#: [id number] Oral 660 360 Output: Void Amount 375 500 325 Other: Meal Lunch Percent of Meal Consumed 100% Feeding Ability Independent Urine Appearance Clear Clear Clear Urine Color Yellow Yellow Yellow Urine Odor Normal Normal OBJ DATA Labs 05/06/23 05:38 05/06/23 05:38 Labs: Abnormal Lab Results 05/06/23 05/06/23 05/05/23 05:38 05:38 13:43 Hgb 13.6 L MCHC 30.9 L RDW 15.0 H Lymph # (Auto) 1.20 L POC BUN BUN 25 H Creatinine 1.3 H POC Creatinine Calcium 8.5 L Lactate Dehydrogenase 127 L Albumin 3.0 L Urine Cocaine Screen Suspect positive A Hepatitis C Antibody 05/05/23 05/05/23 05/05/23 10:11 10:10 10:10 Hgb MCHC RDW 15.0 H Lymph # (Auto) POC BUN 33 H BUN Creatinine POC Creatinine 1.6 H Calcium Lactate Dehydrogenase Albumin Urine Cocaine Screen Hepatitis C Antibody See comment A Meds: Medications Acetaminophen (Acetaminophen 325 Mg Tablet) 650 mg PO Q6HP PRN; Protocol PRN Reason: Per Pain Protocol/Fever > 101 Hydrocodone Bitart/Acetaminophen (Hydrocodone/Apap 7.5/325mg Tablet) 1 - 2 tab PO Q4HP PRN; Protocol PRN Reason: Per Pain Protocol Last Admin: 05/08/23 04:17 Dose: 2 tab Albuterol/Ipratropium (Ipratropium/Albuterol 3 Ml Ampul.Neb) 3 ml NEB Q4HP PRN PRN Reason: Shortness Of Breath Amlodipine Besylate (Amlodipine 5 Mg Tablet) 5 mg PO DAILY [facility] Last Admin: 05/07/23 08:36 Dose: 5 mg Atorvastatin Calcium (Atorvastatin 20 Mg Tablet) 20 mg PO QDAY [facility] Last Admin: 05/07/23 08:36 Dose: 20 mg Bupropion HCl (Bupropion 100 Mg Tablet) 100 mg PO BID [facility] Last Admin: 05/07/23 22:50 Dose: 100 mg Docusate Sodium (Docusate Sodium 100 Mg Capsule) 100 mg PO BID [facility] Last Admin: 05/07/23 22:50 Dose: 100 mg Gabapentin (Gabapentin 300 Mg Capsule) 300 mg PO QHS [facility] Last Admin: 05/07/23 22:50 Dose: 300 mg Heparin Sodium (Porcine) (Heparin 5,000 Unit/Ml Vial) 5,000 unit SQ Q12 [facility] Last Admin: 05/07/23 22:50 Dose: 5,000 unit Potassium Chloride 40 meq/ (Dextrose) 520 mls @ 130 mls/hr IV UD PRN PRN Reason: Potassium < 3 Magnesium Sulfate (Magnesium Sulfate) 2 gm in 50 mls @ 50 mls/hr IV UD PRN PRN Reason: Magnesium </= 1.6 Piperacillin Sod/Tazobactam (Sod 3.375 gm/ Dextrose) 50 mls @ 100 mls/hr IV Q6H [facility]; Protocol Last Infusion: 05/08/23 06:46 Dose: Infused Meclizine HCl (Meclizine 25 Mg Tablet) 25 mg PO TIDP PRN PRN Reason: Vertigo Morphine Sulfate (Morphine 4 Mg/Ml Vial) 2 - 6 mg IV Q1HP PRN; Protocol PRN Reason: Per Pain Protocol Last Admin: 05/07/23 20:48 Dose: 6 mg Ondansetron HCl (Ondansetron 4 Mg/2 Ml Vial) 4 mg IV Q4HP PRN PRN Reason: Nausea And Vomiting Umeclidinium [ Incruse Ellipta] 62. 5 Mcg/Actuation 1 dose INH QDAY [facility] Last Admin: 05/07/23 08:35 Dose: 1 dose Polyethylene Glycol (Polyethylene Glycol 3350 17 Gm Packet) 17 gm PO DAILYP PRN PRN Reason: Constipation Potassium Chloride (Potassium Chloride 20 Meq Tablet) 40 meq PO UD PRN PRN Reason: Potssium is 3-3.5 Potassium Chloride (Potassium Chloride 20 Meq Tablet) 40 meq PO UD PRN PRN Reason: Potassium < 3 Senna (Sennosides 1 Tablet) 2 tab PO DAILYP PRN PRN Reason: Constipation Last Admin: 05/07/23 15:24 Dose: 2 tab Sodium Chloride (0.9 % Sodium Chloride 10 Ml Syringe) 10 ml IV Q8 [facility] Last Admin: 05/08/23 04:18 Dose: 10 ml Tamsulosin HCl (Tamsulosin 0.4 Mg Capsule) 0.8 mg PO QDAY [facility] Last Admin: 05/07/23 08:36 Dose: 0.8 mg Triamcinolone Acetonide (Triamcinolone Cream 0.1% 15g 1 Dose Tube) 1 dose TOPICAL BID [facility] Last Admin: 05/07/23 22:50 Dose: 1 dose A/P Narrative A/P Narrative: A: *Right great toe gangrene with osteomyelitis and cellulitis: s/p amputation (05/05) -probably vascular compromise from cocaine use -WC with MSSA/Morganella/Klebsiella/Strep mitis/Enterococcus *b/l LE petechial rash (pigmented purpuric dermatoses, PPD): etiology unknown but likely 2/2 cocaine use. Improving -2/2 venous insufficiency vs infection vs other vs likely cocaine use -asymptomatic *NAKUL on CKD III: improved with IVF *COPD(not on home O2): *HTN/HLD: *h/o CVA per imaging: *Cocaine use disorder: counseled on quitting and f/u with Dr. Griffith *Neuropathy: *Depression: *h/o renal stones: *h/o Polycythemia: P: -Zosyn to likely Levaquin pending BC/WC -abx for 10-days, mrsa screen neg -Dr. Jerez following -Monitor renal function/UOP -Monitor replace electrolytes as needed -monitor rash, topical corticosteroids -Continue home Norvasc/statin -pt/ot -CM for placement needs -ppx: heparin Time Spent With Patient Time: Total time spent is greater than 50% in coordination of care (as documented) at patient's floor/unit and/or counseling patient: Subsequent: Total time with patient: 35 - 49 minutes QUALITY VTE Deep Vein Thrombosis/Pulmonary Embolism Present on Admission: No
[2023-05-08] MEDS: HEPARIN 5,000 UNIT/ML VIAL SQ SCH ×2 (08:16→22:19)
[2023-05-08] MEDS: DOCUSATE SODIUM 100 MG CAPSULE PO SCH ×2 (08:16→22:19)
[2023-05-08] MEDS: amLODIPine 5 MG TABLET PO SCH (08:16)
[2023-05-08] MEDS: ATORVASTATIN 20 MG TABLET PO SCH (08:16)
[2023-05-08] MEDS: Umeclidinium [Incruse Ellipta] 62.5 mcg/actuation INH SCH (08:16)
[2023-05-08] MEDS: buPROPion 100 MG TABLET PO SCH ×2 (08:16→22:19)
[2023-05-08] MEDS: TRIAMCINOLONE CREAM 0.1% 15G 1 DOSE TUBE TOPICAL SCH ×2 (08:16→22:19)
[2023-05-08] MEDS: TAMSULOSIN 0.4 MG CAPSULE PO SCH (08:17)
[2023-05-08] MEDS: morphine 4 MG/ML VIAL IV PRN (18:34)
[2023-05-08] MEDS: GABAPENTIN 300 MG CAPSULE PO SCH (22:22)
[2023-05-09] MEDS: PIPERACILLIN SODIUM/TAZOBACTAM 3.375 GM in DEXTROSE 5% IN WATER 50 ML IV SCH ×2 (00:12→06:18)
[2023-05-09] MEDS: HYDROCODONE/APAP 7.5/325MG TABLET PO PRN (00:18)
[2023-05-09] MEDS: 0.9 % SODIUM CHLORIDE 10 ML SYRINGE IV SCH (06:18)
--- NOTE | 2023-05-09 06:37 | General Surgery Progress Note ---
SUBJECTIVE Subjective Patient information: Note initiated : 05/09/23 at 6:35 am Service Date, if different from initiated Date: [] Patient: Souleymane Naik 72 y/o M admitted on 05/05/23. Chief Complaint: [] Principal diagnosis: cellulitis Right great toe Interval history: No new issues Constitutional Vitals: Vital Signs Temp Pulse Resp BP Pulse Ox O2 Del Method O2 Flow Rate 97.0 F 58 L 12 108/57 92 Room Air 0 05/09/23 03:27 05/09/23 03:27 05/09/23 03:27 05/09/23 03:27 05/09/23 03:27 05/09/23 03:27 05/05/23 15:21 Period Temp Pulse Resp BP Sys/Concepcion Pulse Ox O2 Del Method O2 Flow Rate Last 24 Hr 97.0 F-98.1 F 53-76 12-18 108-131/57-76 92-97 Room Air-Room A ir Intake and Output 05/08/23 05/09/23 05/09/23 19:59 03:59 11:59 Intake Total 580 175 Output Total 475 Balance 580 -300 Weight 210 lb 3.2 oz Intake & Output: Intake & Output 05/08/23 05/09/23 05/09/23 19:59 03:59 11:59 Intake Total 580 175 Output Total 475 Balance 580 -300 Weight 210 lb 3.2 oz Intake: IV 100 50 Zosyn 3.375 gm In Dextrose 5% 100 50 in Water 50 ml @ 100 mls/hr IV Q6H [facility] Rx#:[id number] Oral 480 125 Output: Void Amount 475 Other: Meal Dinner Percent of Meal Consumed 100% Feeding Ability Independent Urine Appearance Clear Urine Color Yellow Urine Odor Normal Extremities Exam Additional comments: dressing clean and dry A/P Assessment and plan (1) Acute osteomyelitis of toe of right foot: Status: Acute Plan continue iv antibiotics x 10days Time Spent With Patient Time: Total time spent is greater than 50% in coordination of care (as documented) at patient's floor/unit and/or counseling patient:
--- NOTE | 2023-05-09 08:14 | Internal Med Progress Note ---
SUBJECTIVE Subjective Patient information: Note initiated : 05/09/23 at 8:13 am Service Date, if different from initiated Date: [] Patient: Souleymane Naik 72 y/o M admitted on 05/05/23. Chief Complaint: [] Principal diagnosis: cellulitis Right great toe Interval history: History of present illness: Mr. Naik is a 72 year old M Presents the ED with several complaints. Patient has had after falling several days ago after tripping, he did not lose consciousness but did hit his head. He did have some scalp bleeding afterwards which is stopped. He today decided he was worried about a skull flap fracture and so he came to the ED. he also developed a petechial rash of his legs and he said he did not notice it until he after he fell. Patient denies any recent medications and actually said he is has not taken his medications for a week or so. Patient denies any headache had a little bit of nausea earlier but no vomiting. No chest pain shortness of breath stomach pain. He also complains of a right great toe infection which she is been dealing with for some time and could not give me a timeframe of when he felt he was last normal. He used to be a patient of Dr. Granados'trav but did see Dr. Wilder at the [facility] of March for a toe infection and was given Keflex. In the ED his BUN/creatinine was mildly elevated above baseline. X-ray of the foot showed osteomyelitis of the great toe. Patient was started on IV antibiotics and wound cultures were obtained in the ED. Dr. Jerez was contacted who will likely amputate the toe in the OR shortly. 05/06 Patient had great toe amputation last night. Patient slept okay and feeling fine this morning. Status post IV fluids for acute kidney injury. Discussed with him the need to stop cocaine use given his ischemic toe. 05/07 No new pains or complaints. patient feels unstable on feet. No overnight event or new complaints. 05/08 No overnight events. No new complaints. Wound cultures from the growing MSSA Morganella Morgagni Klebsiella Streptococcus mitis and Enterococcus. Working with PT and case management for placement. JORGE Contreras. On Zosyn. Review of Systems: Pertinent positives as above. Denies headache/fever/chills/vomiting/chest or abdominal pain/cough/dyspnea/diarrhea. PHYSICAL EXAM General: Alert, Awake, No acute Distress Eyes/N/T: EOMI, no scleral icterus, Head/Neck: neck supple, full ROM, CV: RRR, No murmurs, Pulm: Clear b/l, no wheezing/rhonchi/rales, no respiratory distress Abd: soft, nontender, +BS x4 Ext: no clubbing/cyanosis, b/l LE 1+ edma R>L, nontender, Right foot in dressings. b/l LE petechial rash improving Neuro: Alert, no focal deficits, moves all extremities, , decreased sensations b/l lower ext Psychiatric: Skin: warm/dry, normal color Constitutional Vitals: Vital Signs Temp Pulse Resp BP Pulse Ox O2 Del Method O2 Flow Rate 97.5 F 92 H 16 104/64 96 Room Air 0 05/09/23 07:35 05/09/23 07:35 05/09/23 07:35 05/09/23 07:35 05/09/23 07:53 05/09/23 07:53 05/05/23 15:21 Period Temp Pulse Resp BP Sys/Concepcion Pulse Ox O2 Del Method O2 Flow Rate Last 24 Hr 97.0 F-98.1 F 58-92 12-18 104-131/57-75 92-97 Room Air-Room Air Intake and Output 05/08/23 05/09/23 05/09/23 19:59 03:59 11:59 Intake Total 580 175 50 Output Total 475 375 Balance 580 -300 -325 Weight 95.345 kg Intake & Output: Intake & Output 05/08/23 05/09/23 05/09/23 19:59 03:59 11:59 Intake Total 580 175 50 Output Total 475 375 Balance 580 -300 -325 Weight 95.345 kg Intake: IV 100 50 50 Zosyn 3.375 gm In Dextrose 5% 100 50 50 in Water 50 ml @ 100 mls/hr IV Q6H [facility] Rx#:[id number] Oral 480 125 Output: Void Amount 475 375 Other: Meal Dinner Percent of Meal Consumed 100% Feeding Ability Independent Urine Appearance Clear Clear Urine Color Yellow Yellow Urine Odor Normal Normal OBJ DATA Labs 05/06/23 05:38 05/06/23 05:38 Meds: Medications Acetaminophen (Acetaminophen 325 Mg Tablet) 650 mg PO Q6HP PRN; Protocol PRN Reason: Per Pain Protocol/Fever > 101 Hydrocodone Bitart/Acetaminophen (Hydrocodone/Apap 7.5/325mg Tablet) 1 - 2 tab PO Q4HP PRN; Protocol PRN Reason: Per Pain Protocol Last Admin: 05/09/23 00:18 Dose: 2 tab Albuterol/Ipratropium (Ipratropium/Albuterol 3 Ml Ampul.Neb) 3 ml NEB Q4HP PRN PRN Reason: Shortness Of Breath Amlodipine Besylate (Amlodipine 5 Mg Tablet) 5 mg PO DAILY [facility] Last Admin: 05/08/23 08:16 Dose: 5 mg Atorvastatin Calcium (Atorvastatin 20 Mg Tablet) 20 mg PO QDAY [facility] Last Admin: 05/08/23 08:16 Dose: 20 mg Bupropion HCl (Bupropion 100 Mg Tablet) 100 mg PO BID [facility] Last Admin: 05/08/23 22:19 Dose: 100 mg Docusate Sodium (Docusate Sodium 100 Mg Capsule) 100 mg PO BID [facility] Last Admin: 05/08/23 22:19 Dose: 100 mg Gabapentin (Gabapentin 300 Mg Capsule) 300 mg PO QHS [facility] Last Admin: 05/08/23 22:22 Dose: 300 mg Heparin Sodium (Porcine) (Heparin 5,000 Unit/Ml Vial) 5,000 unit SQ Q12 [facility] Last Admin: 05/08/23 22:19 Dose: 5,000 unit Potassium Chloride 40 meq/ (Dextrose) 520 mls @ 130 mls/hr IV UD PRN PRN Reason: Potassium < 3 Magnesium Sulfate (Magnesium Sulfate) 2 gm in 50 mls @ 50 mls/hr IV UD PRN PRN Reason: Magnesium </= 1.6 Piperacillin Sod/Tazobactam (Sod 3.375 gm/ Dextrose) 50 mls @ 100 mls/hr IV Q6H [facility]; Protocol Last Infusion: 05/09/23 06:58 Dose: Infused Meclizine HCl (Meclizine 25 Mg Tablet) 25 mg PO TIDP PRN PRN Reason: Vertigo Morphine Sulfate (Morphine 4 Mg/Ml Vial) 2 - 6 mg IV Q1HP PRN; Protocol PRN Reason: Per Pain Protocol Last Admin: 05/08/23 18:34 Dose: 4 mg Ondansetron HCl (Ondansetron 4 Mg/2 Ml Vial) 4 mg IV Q4HP PRN PRN Reason: Nausea And Vomiting Umeclidinium [ Incruse Ellipta] 62. 5 Mcg/Actuation 1 dose INH QDAY [facility] Last Admin: 05/08/23 08:16 Dose: 1 dose Polyethylene Glycol (Polyethylene Glycol 3350 17 Gm Packet) 17 gm PO DAILYP PRN PRN Reason: Constipation Potassium Chloride (Potassium Chloride 20 Meq Tablet) 40 meq PO UD PRN PRN Reason: Potssium is 3-3.5 Potassium Chloride (Potassium Chloride 20 Meq Tablet) 40 meq PO UD PRN PRN Reason: Potassium < 3 Senna (Sennosides 1 Tablet) 2 tab PO DAILYP PRN PRN Reason: Constipation Last Admin: 05/07/23 15:24 Dose: 2 tab Sodium Chloride (0.9 % Sodium Chloride 10 Ml Syringe) 10 ml IV Q8 [facility] Last Admin: 05/09/23 06:18 Dose: 10 ml Tamsulosin HCl (Tamsulosin 0.4 Mg Capsule) 0.8 mg PO QDAY [facility] Last Admin: 05/08/23 08:17 Dose: 0.8 mg Triamcinolone Acetonide (Triamcinolone Cream 0.1% 15g 1 Dose Tube) 1 dose TOPICAL BID [facility] Last Admin: 05/08/23 22:19 Dose: 1 dose A/P Narrative A/P Narrative: A: *Right great toe gangrene with osteomyelitis and cellulitis: s/p amputation (05/05) -probably vascular compromise from cocaine use -WC with MSSA/Morganella/Klebsiella/Strep mitis/Enterococcus *b/l LE petechial rash (pigmented purpuric dermatoses, PPD): etiology unknown but likely 2/2 cocaine use. Improving -2/2 venous insufficiency vs infection vs other vs likely cocaine use -asymptomatic *NAKUL on CKD III: improved with IVF *COPD(not on home O2): *HTN/HLD: *h/o CVA per imaging: *Cocaine use disorder: counseled on quitting and f/u with Dr. Griffith *Neuropathy: *Depression: *h/o renal stones: *h/o Polycythemia: P: -Zosyn to Levaquin upon d/c -abx for 10-days from amputation, mrsa screen neg -Dr. Jerez following -Monitor renal function/UOP -Monitor replace electrolytes as needed -monitor rash, topical corticosteroids -Continue home Norvasc/statin -pt/ot -CM for placement needs -ppx: heparin Time Spent With Patient Time: Total time spent is greater than 50% in coordination of care (as documented) at patient's floor/unit and/or counseling patient: Subsequent: Total time with patient: 35 - 49 minutes QUALITY VTE Deep Vein Thrombosis/Pulmonary Embolism Present on Admission: No
[2023-05-09] MEDS ORDERED: LEVOFLOXACIN 750 MG/150 ML BAG IV SCH (09:00)
[2023-05-09] MEDS: amLODIPine 5 MG TABLET PO SCH (10:21)
[2023-05-09] MEDS: ATORVASTATIN 20 MG TABLET PO SCH (10:21)
[2023-05-09] MEDS: buPROPion 100 MG TABLET PO SCH (10:21)
[2023-05-09] MEDS: TRIAMCINOLONE CREAM 0.1% 15G 1 DOSE TUBE TOPICAL SCH (10:22)
[2023-05-09] MEDS: HEPARIN 5,000 UNIT/ML VIAL SQ SCH (10:22)
[2023-05-09] MEDS: DOCUSATE SODIUM 100 MG CAPSULE PO SCH (10:22)
[2023-05-09] MEDS: TAMSULOSIN 0.4 MG CAPSULE PO SCH (10:22)
[2023-05-09] MEDS: Umeclidinium [Incruse Ellipta] 62.5 mcg/actuation INH SCH (10:25)
[2023-05-09 11:29] LABS: Blood Urea Nitrogen 23 mg/dL (8-23); Calcium 9.7 mg/dL (8.6-10.4); Carbon Dioxide 21 mmol/L (22-30); Chloride 101 mmol/L (96-108); Glomerular Filtration Rate 46; Glucose 94 mg/dL (70-105)
[2023-05-17 14:52] LABS: Cocaine Confirmation Positive
--- NOTE | 2023-05-18 14:20 | Operative Note ---
DATE OF OPERATION: 05/05/2023 PREOPERATIVE DIAGNOSIS: Gangrenous right great toe. POSTOPERATIVE DIAGNOSIS: Gangrenous right great toe. OPERATION PROPOSED: Metatarsophalangeal joint amputation, right great toe. OPERATION PERFORMED: Metatarsophalangeal joint amputation, right great toe. OPERATING SURGEON: Jayden Jerez M.D. CONSTRUCTION INSPECTOR: Brennon Christie PA-C. The assistance of the PA was required for the safe and efficient completion of the entire case. The expertise and technical skill of this provider was required throughout the case. The PA assisted with preoperative coordination, intraoperative retraction, wound closure, dressing and splint application, as well as postoperative documentation and care coordination. INDICATIONS: This is a gentleman who presents with a chronic draining wound with cellulitis. He had cultures with methicillin-resistant Staphylococcus aureus. He has osteomyelitis of his distal phalanx. We have elected to proceed with a right great toe amputation. OPERATION IN DETAIL: Informed consent was obtained. He was taken to the operating room and provided appropriate anesthetic and prophylactic antibiotics. He was carefully positioned. His wounds were cleaned and prepped. I raised appropriate anterior and posterior flaps. I disarticulated the joint at the metatarsophalangeal joint. Tendons were cut proximally. Hemostasis was ensured. I closed with bringing soft tissue across the metatarsal with 0 Monocryl and 3-0 nylon was used to approximate the skin edges. The wounds were irrigated thoroughly and a sterile dressing was applied. Procedure was tolerated well. No complications. ESTIMATED BLOOD LOSS: Nil. [id number] Job ID: [id number] Doc ID: [id number] Jayden Jerez MD
== END 2023-05-09 11:40 | DRG 256 ==
LOC: ED 09:27 → SUR 13:25 → MEDSUR 15:25
PROVIDERS: ADMIT Internal Medicine; ATTEND Internal Medicine

== ENCOUNTER 2025-08-19 12:43 | Observation (INO) ==
[2025-08-19] MEDS ORDERED: IOPAMIDOL 100 ML BOTTLE IV ONE (12:44)
[2025-08-19 14:07] LABS: ALT/SGPT 8 U/L (<40); AST/SGOT 15 U/L (<40); Albumin 4.1 gm/dL (3.2-5.2); Albumin/Globulin Ratio 1.2 (1.0-2.3); Alkaline Phosphatase 138 U/L (39-117); Anion Gap 13.0 (8.0-16.0); Basophils # (Auto) 0.01 K/mcL (0.00-0.30); Basophils % (Auto) 0.1 % (0.0-2.0); Bilirubin,Total 0.6 mg/dL (0.1-1.0); Blood Urea Nitrogen 27 mg/dL (8-23); Calcium 9.6 mg/dL (8.6-10.4); Carbon Dioxide 23 mmol/L (22-30); Chloride 106 mmol/L (96-108); Eosinophils # (Auto) 0.01 K/mcL (0.00-0.70); Eosinophils % (Auto) 0.1 % (0.0-7.0); Globulin 3.3 gm/dL (2.2-3.7); Glucose 136 mg/dL (70-105); Hematocrit 53.1 % (40.1-51.0); Hemoglobin 16.9 g/dL (13.7-17.5); Lymphocytes # (Auto) 0.53 K/mcL (1.50-4.80); Lymphocytes % (Auto) 3.8 % (15.5-49.0); Mean Corpuscular HGB Conc 31.8 g/dL (31.0-36.0); Monocytes # (Auto) 0.86 K/mcL (0.10-0.90); Monocytes % (Auto) 6.2 % (1.0-12.0); Neutrophils % (Auto) 89.5 % (38.0-78.0); Platelet Count 279 K/mcL (140-440); Potassium 4.1 mmol/L (3.3-5.1); RBC 5.91 M/mcL (4.63-6.08); Sodium 142 mmol/L (133-145); WBC 14.0 K/mcL (4.5-11.0)
[2025-08-19 18:13] LABS: Bilirubin,Urine NEGATIVE (Negative); Color,Urine YELLOW; Glucose,Urine (UA) NEGATIVE (Negative); Ketones,Urine NEGATIVE (Negative); Leukocyte Esterase,Urine NEGATIVE /uL (Negative); PH,Urine 5.5 (5.0-9.0); Protein,Urine NEGATIVE (Negative); Specific Gravity,Urine 1.015 (1.000-1.035); Urobilinogen,Urine 0.2 mg/dL
[2025-08-19 23:35] LABS: Basophils # (Auto) 0 K/mcL (0.00-0.30); Basophils % (Auto) 0 % (0.0-2.0); Eosinophils # (Auto) 0.01 K/mcL (0.00-0.70); Eosinophils % (Auto) 0.1 % (0.0-7.0); Hematocrit 54.2 % (40.1-51.0); Hemoglobin 17.1 g/dL (13.7-17.5); Lymphocytes # (Auto) 0.62 K/mcL (1.50-4.80); Lymphocytes % (Auto) 5.1 % (15.5-49.0); Mean Corpuscular HGB Conc 31.5 g/dL (31.0-36.0); Monocytes # (Auto) 0.93 K/mcL (0.10-0.90); Monocytes % (Auto) 7.7 % (1.0-12.0); Neutrophils % (Auto) 86.8 % (38.0-78.0); Platelet Count 271 K/mcL (140-440); RBC 6.00 M/mcL (4.63-6.08); WBC 12.1 K/mcL (4.5-11.0)
[2025-08-19] MEDS: ONDANSETRON 4 MG/2 ML VIAL IV ONE (23:44)
[2025-08-20 00:02] LABS: C-Reactive Protein 5.51 mg/dL (0.03-0.80)
[2025-08-20] MEDS ORDERED: PROMETHAZINE 25 MG TABLET PO PRN (00:44)
[2025-08-20] MEDS ORDERED: ONDANSETRON 4 MG/2 ML VIAL IV PRN (00:44)
[2025-08-20] MEDS: LACTATED RINGERS 1,000 ML IV SCH ×2 (00:47→13:32)
[2025-08-20] MEDS: METOCLOPRAMIDE 10 MG/2 ML VIAL IV PRN (00:54)
[2025-08-20] MEDS: METOCLOPRAMIDE 10 MG/2 ML VIAL ONE (01:21)
[2025-08-20] MEDS: 0.9 % SODIUM CHLORIDE 10 ML SYRINGE IV SCH (04:55)
[2025-08-20] MEDS: PANTOPRAZOLE 40 MG TABLET PO SCH (07:47)
[2025-08-20 08:23] LABS: Basophils # (Auto) 0.01 K/mcL (0.00-0.30); Basophils % (Auto) 0.1 % (0.0-2.0); Eosinophils # (Auto) 0.02 K/mcL (0.00-0.70); Eosinophils % (Auto) 0.2 % (0.0-7.0); Hematocrit 49.7 % (40.1-51.0); Hemoglobin 16.0 g/dL (13.7-17.5); Lymphocytes # (Auto) 0.75 K/mcL (1.50-4.80); Lymphocytes % (Auto) 7.0 % (15.5-49.0); Mean Corpuscular HGB Conc 32.2 g/dL (31.0-36.0); Monocytes # (Auto) 1.03 K/mcL (0.10-0.90); Monocytes % (Auto) 9.7 % (1.0-12.0); Neutrophils % (Auto) 82.7 % (38.0-78.0); Platelet Count 267 K/mcL (140-440); RBC 5.54 M/mcL (4.63-6.08); WBC 10.6 K/mcL (4.5-11.0)
[2025-08-20 08:54] LABS: ALT/SGPT 6 U/L (<40); AST/SGOT 13 U/L (<40); Albumin 3.6 gm/dL (3.2-5.2); Albumin/Globulin Ratio 1.3 (1.0-2.3); Alkaline Phosphatase 110 U/L (39-117); Anion Gap 11.0 (8.0-16.0); Bilirubin,Direct 0.3 mg/dL (<0.3); Bilirubin,Total 0.5 mg/dL (0.1-1.0); Blood Urea Nitrogen 24 mg/dL (8-23); Calcium 8.9 mg/dL (8.6-10.4); Carbon Dioxide 24 mmol/L (22-30); Chloride 108 mmol/L (96-108); Globulin 2.7 gm/dL (2.2-3.7); Glucose 117 mg/dL (70-105); Phosphorous 3.4 mg/dL (2.5-4.5); Potassium 4.2 mmol/L (3.3-5.1); Sodium 143 mmol/L (133-145); Triglycerides 133 mg/dL (<150); Uric Acid 4.7 mg/dL (2.5-8.0)
[2025-08-20] MEDS: ENOXAPARIN 40 MG/0.4 ML SYRINGE SQ SCH (10:09)
[2025-08-20] MEDS: ACETAMINOPHEN 325 MG TABLET PO PRN (13:32)
[2025-08-21] MEDS: MELATONIN 3 MG TABLET PO PRN (02:04)
[2025-08-21 07:08] LABS: ALT/SGPT 5 U/L (<40); AST/SGOT 10 U/L (<40); Albumin 3.4 gm/dL (3.2-5.2); Albumin/Globulin Ratio 1.4 (1.0-2.3); Alkaline Phosphatase 88 U/L (39-117); Anion Gap 8.0 (8.0-16.0); Bilirubin,Direct 0.2 mg/dL (<0.3); Bilirubin,Total 0.4 mg/dL (0.1-1.0); Blood Urea Nitrogen 26 mg/dL (8-23); Calcium 8.7 mg/dL (8.6-10.4); Carbon Dioxide 27 mmol/L (22-30); Chloride 107 mmol/L (96-108); Globulin 2.5 gm/dL (2.2-3.7); Glucose 86 mg/dL (70-105); Phosphorous 2.4 mg/dL (2.5-4.5); Potassium 4.1 mmol/L (3.3-5.1); Sodium 142 mmol/L (133-145); Triglycerides 137 mg/dL (<150); Uric Acid 3.9 mg/dL (2.5-8.0)
[2025-08-21] MEDS: Umeclidinium [Incruse Ellipta] 62.5 mcg/actuation INH SCH (09:21)
[2025-08-21] MEDS: TAMSULOSIN 0.4 MG CAPSULE PO SCH (09:21)
[2025-08-22] MEDS: ZOLPIDEM 5 MG TABLET PO PRN (00:28)
[2025-08-22 14:30] VITALS: TEMP 98.1; O2SAT 98
== END 2025-08-22 14:16 ==
LOC: MEDSUR 12:43 → ED 12:43 → MEDSUR 08-20 00:34
PROVIDERS: ADMIT Student in an Organized Health Care Education/Training Program; ATTEND Internal Medicine